=== PATIENT | male | born 1960 | race Caucasian/White ===

== ENCOUNTER 2017-11-25 00:07 | Day surgery (SDC) | payer MEDICARE, SELFPAY ==
[~2017-11-25 00:07] MED LIST: ACYC800 PO; CEPH500 PO; DEXA4 PO; DRON5 PO; FLUC200 PO; GABA300; IBUP800 PO; LEVFLO500 PO; MEDICAL MARIJUANA; OXYACE10 PO; OXYACE5T PO; PROC5 PO; PROM25 PO; Zofran8 MG PO
[2017-11-25 09:08] LABS: BASOPHILS PERCENT AUTO 4 % (0-2); EOSINOPHILS ABSOLUTE AUTO 0.27 K/mm3 (0.00-0.68); EOSINOPHILS PERCENT AUTO 11 % (0-6); Hematocrit 32.4 % (37.0-53.0); Hemoglobin 11.2 g/dL (13.5-17.5); IMMATURE GRAN ABSOLUTE AUTO 0.04 K/mm3 (0.00-0.10); IMMATURE GRAN PERCENT AUTO 2 % (0-1); LYMPHOCYTES ABSOLUTE AUTO 0.56 K/mm3 (0.84-5.20); LYMPHOCYTES PERCENT AUTO 23 % (21-46); MONOCYTES ABSOLUTE AUTO 0.25 K/mm3 (0.16-1.47); MONOCYTES PERCENT AUTO 10 % (4-13); Mean Corpuscular HGB 36.5 pg (26.0-34.0); Mean Corpuscular HGB Conc 34.6 g/dL (31.5-36.5); Mean Corpuscular Volume 106 fL (80-100); Mean Platelet Volume 10.6 fL (9.1-12.4); NEUTROPHILS ABSOLUTE AUTO 1.23 K/mm3 (1.96-9.15); NEUTROPHILS PERCENT AUTO 50 % (41-73); Platelet Count 141 K/mm3 (150-400); RDW Standard Deviation 49.9 fL (35.1-46.3); Red Blood Cell Count 3.07 M/mm3 (4.30-5.90); White Blood Cell Count 2.45 K/mm3 (4.00-11.30)
[2017-11-25 09:27] LABS: Alanine Aminotransfer (ALT/SGP 28 U/L (12-78); Albumin, Blood 3.5 g/dL (3.4-5.0); Albumin/Globulin Ratio 1.3 (0.8-1.8); Alk Phos 92 U/L (50-136); Anion Gap 7 mmol/L (6-16); Aspartate Aminotrans (AST/SGOT 13 U/L (12-37); Bilirubin, Total 0.7 mg/dL (0.1-1.0); Blood Urea Nitrogen 15 mg/dL (8-24); Bun/Creatinine Ratio 14.9 (12.0-20.0); CO2, Blood 26 mmol/L (21-32); Calcium, Blood 7.9 mg/dL (8.5-10.1); Chloride, Blood 109 mmol/L (98-108); Creatinine, Blood 1.01 mg/dL (0.60-1.20); Globulin, Blood 2.6 g/dL (2.2-4.0); Glomerular Filtration Rate >60 (60-); Glucose, Blood 89 mg/dL (70-99); Potassium, Blood 3.5 mmol/L (3.5-5.5); Sodium, Blood 142 mmol/L (136-145); Total Protein, Blood 6.1 g/dL (6.4-8.2)
== END 2017-11-25 22:37 ==
LOC: ATC 00:07
PROVIDERS: Internal Medicine Hematology & Oncology
DX: C82.18 Follicular lymphoma grade II, lymph nodes of multiple sites (principal)
CPT/HCPCS: 36591; 80053; 85025; J1642

== ENCOUNTER 2017-12-20 00:29 | Day surgery (SDC) | payer MEDICARE, SELFPAY | END 2017-12-20 11:03 | disposition home or self-care (01) | LOC: ATC 00:29 | DX: C82.18 Follicular lymphoma grade II, lymph nodes of multiple sites (principal); Z88.8 Allergy status to other drugs, medicaments and biological substances; Z79.899 Other long term (current) drug therapy | CPT/HCPCS: 96372; J1447 ==

== ENCOUNTER 2017-12-28 00:38 | Day surgery (SDC) | payer MEDICARE, SELFPAY ==
[2017-12-28 10:47] LABS: Hematocrit 29.1 % (37.0-53.0); Hemoglobin 9.8 g/dL (13.5-17.5); Mean Corpuscular HGB 35.8 pg (26.0-34.0); Mean Corpuscular HGB Conc 33.7 g/dL (31.5-36.5); Mean Corpuscular Volume 106 fL (80-100); Mean Platelet Volume 10.6 fL (9.1-12.4); Platelet Count 195 K/mm3 (150-400); RDW Coefficient Variation 15.6 % (11.7-14.2); RDW Standard Deviation 60.1 fL (35.1-46.3); Red Blood Cell Count 2.74 M/mm3 (4.30-5.90)
[2017-12-28 11:11] LABS: Alanine Aminotransfer (ALT/SGP 19 U/L (12-78); Albumin, Blood 3.4 g/dL (3.4-5.0); Albumin/Globulin Ratio 1.1 (0.8-1.8); Alk Phos 105 U/L (50-136); Anion Gap 5 mmol/L (6-16); Aspartate Aminotrans (AST/SGOT 12 U/L (12-37); Bilirubin, Total 0.7 mg/dL (0.1-1.0); Blood Urea Nitrogen 18 mg/dL (8-24); Bun/Creatinine Ratio 17.6 (12.0-20.0); CO2, Blood 26 mmol/L (21-32); Calcium, Blood 8.3 mg/dL (8.5-10.1); Chloride, Blood 108 mmol/L (98-108); Creatinine, Blood 1.02 mg/dL (0.60-1.20); Glomerular Filtration Rate >60 (60-); Glucose, Blood 89 mg/dL (70-99); Potassium, Blood 4.4 mmol/L (3.5-5.5); Sodium, Blood 139 mmol/L (136-145); Total Protein, Blood 6.4 g/dL (6.4-8.2)
[2017-12-28 11:30] LABS: BAND PERCENT MAN 1 % (0-8); BASOPHILS ABSOLUTE MAN 0.04 K/mm3 (0.00-0.23); BASOPHILS PERCENT MAN 2 % (0-2); EOSINOPHILS ABSOLUTE MAN 0.16 K/mm3 (0.00-0.68); EOSINOPHILS PERCENT MAN 7 % (0-6); LYMPHOCYTES % ATYPICAL MANUAL 3 % (0-0); LYMPHOCYTES ABSOLUTE MAN 1.15 K/mm3 (0.84-5.20); LYMPHOCYTES PERCENT MAN 45 % (21-46); MONOCYTES ABSOLUTE MAN 0.14 K/mm3 (0.16-1.47); MONOCYTES PERCENT MAN 6 % (4-13); NEUTROPHILS ABSOLUTE MAN 0.88 K/mm3 (1.96-9.15); SEG NEUTROPHILS PERCENT MAN 36 % (41-73); TOTAL CELLS COUNTED 100
== END 2017-12-28 10:28 | disposition home or self-care (01) ==
LOC: ATC 00:38
PROVIDERS: Internal Medicine Hematology & Oncology
DX: C82.18 Follicular lymphoma grade II, lymph nodes of multiple sites (principal)
CPT/HCPCS: 36591; 80053; 85025; J1642

== ENCOUNTER 2018-09-01 00:05 | Day surgery (SDC) | payer MEDICARE, SELFPAY ==
[~2018-09-01 00:05] MED LIST changes: +HEPARIN 50500 UNIT/5 IV; +NEUPOGEN SC
[2018-09-01] MEDS ORDERED: ZYDELIG150 MG PO (16:45)
[2018-09-01] MEDS ORDERED: LACT10SY PO (16:53)
[2018-09-01] MEDS ORDERED: PROC5 PO (16:54)
[2018-09-01] MEDS ORDERED: SULTRIL10 (16:55)
[2018-09-01 17:15] LABS: BASOPHILS ABSOLUTE AUTO 0.04 K/mm3 (0.00-0.23); BASOPHILS PERCENT AUTO 2 % (0-2); EOSINOPHILS ABSOLUTE AUTO 0.06 K/mm3 (0.00-0.68); EOSINOPHILS PERCENT AUTO 2 % (0-6); Hematocrit 31.7 % (37.0-53.0); Hemoglobin 10.2 g/dL (13.5-17.5); IMMATURE GRAN ABSOLUTE AUTO 0.11 K/mm3 (0.00-0.10); IMMATURE GRAN PERCENT AUTO 4 % (0-1); LYMPHOCYTES ABSOLUTE AUTO 1.24 K/mm3 (0.84-5.20); LYMPHOCYTES PERCENT AUTO 46 % (21-46); MONOCYTES ABSOLUTE AUTO 0.23 K/mm3 (0.16-1.47); MONOCYTES PERCENT AUTO 9 % (4-13); Mean Corpuscular HGB 34.3 pg (26.0-34.0); Mean Corpuscular HGB Conc 32.2 g/dL (31.5-36.5); Mean Corpuscular Volume 107 fL (80-100); Mean Platelet Volume 10.1 fL (9.1-12.4); NEUTROPHILS ABSOLUTE AUTO 1.01 K/mm3 (1.96-9.15); NEUTROPHILS PERCENT AUTO 38 % (41-73); Platelet Count 132 K/mm3 (150-400); RDW Coefficient Variation 15.4 % (11.7-14.2); RDW Standard Deviation 60.2 fL (35.1-46.3); Red Blood Cell Count 2.97 M/mm3 (4.30-5.90); White Blood Cell Count 2.69 K/mm3 (4.00-11.30)
[2018-09-01 17:33] LABS: Albumin, Blood 3.7 g/dL (3.4-5.0); Albumin/Globulin Ratio 1.2 (0.8-1.8); Bilirubin, Total 0.8 mg/dL (0.1-1.0); Bun/Creatinine Ratio 10.2 (12.0-20.0); Calcium, Blood 8.3 mg/dL (8.5-10.1); Creatinine, Blood 1.67 mg/dL (0.60-1.20); Potassium, Blood 3.7 mmol/L (3.5-5.5); Total Protein, Blood 6.7 g/dL (6.4-8.2)
== END 2018-09-01 16:30 | disposition home or self-care (01) ==
LOC: ATC 00:05
PROVIDERS: Internal Medicine Hematology & Oncology
DX: C82.18 Follicular lymphoma grade II, lymph nodes of multiple sites (principal); M54.9 Dorsalgia, unspecified; G89.29 Other chronic pain; Z88.8 Allergy status to other drugs, medicaments and biological substances; Z79.82 Long term (current) use of aspirin; Z79.899 Other long term (current) drug therapy
CPT/HCPCS: 36591; 80053; 85025

== ENCOUNTER 2018-09-29 00:14 | Day surgery (SDC) | payer MEDICARE ==
[~2018-09-29 00:14] MED LIST changes: +LACT10SY PO; +SULTRIL10; +ZYDELIG150 MG PO
[2018-09-29 16:52] LABS: BASOPHILS ABSOLUTE AUTO 0.02 K/mm3 (0.00-0.23); BASOPHILS PERCENT AUTO 1 % (0-2); EOSINOPHILS ABSOLUTE AUTO 0.06 K/mm3 (0.00-0.68); EOSINOPHILS PERCENT AUTO 2 % (0-6); Hematocrit 28.7 % (37.0-53.0); Hemoglobin 9.6 g/dL (13.5-17.5); IMMATURE GRAN ABSOLUTE AUTO 0.23 K/mm3 (0.00-0.10); IMMATURE GRAN PERCENT AUTO 6 % (0-1); LYMPHOCYTES ABSOLUTE AUTO 0.94 K/mm3 (0.84-5.20); LYMPHOCYTES PERCENT AUTO 25 % (21-46); MONOCYTES ABSOLUTE AUTO 0.31 K/mm3 (0.16-1.47); MONOCYTES PERCENT AUTO 8 % (4-13); Mean Corpuscular HGB 35.7 pg (26.0-34.0); Mean Corpuscular HGB Conc 33.4 g/dL (31.5-36.5); Mean Corpuscular Volume 107 fL (80-100); Mean Platelet Volume 9.7 fL (9.1-12.4); NEUTROPHILS PERCENT AUTO 59 % (41-73); Platelet Count 93 K/mm3 (150-400); RDW Coefficient Variation 15.3 % (11.7-14.2); RDW Standard Deviation 60.2 fL (35.1-46.3); Red Blood Cell Count 2.69 M/mm3 (4.30-5.90); White Blood Cell Count 3.76 K/mm3 (4.00-11.30)
[2018-09-29 17:18] LABS: Alanine Aminotransfer (ALT/SGP 27 U/L (12-78); Albumin, Blood 3.8 g/dL (3.4-5.0); Albumin/Globulin Ratio 1.4 (0.8-1.8); Alk Phos 119 U/L (50-136); Anion Gap 5 mmol/L (6-16); Aspartate Aminotrans (AST/SGOT 21 U/L (12-37); Bilirubin, Total 0.7 mg/dL (0.1-1.0); Blood Urea Nitrogen 12 mg/dL (8-24); CO2, Blood 23 mmol/L (21-32); Calcium, Blood 8.1 mg/dL (8.5-10.1); Chloride, Blood 110 mmol/L (98-108); Globulin, Blood 2.8 g/dL (2.2-4.0); Glomerular Filtration Rate >60 (60-); Glucose, Blood 106 mg/dL (70-99); Potassium, Blood 3.3 mmol/L (3.5-5.5); Sodium, Blood 138 mmol/L (136-145); Total Protein, Blood 6.6 g/dL (6.4-8.2)
== END 2018-09-29 16:42 | disposition home or self-care (01) ==
LOC: ATC 00:14
PROVIDERS: Internal Medicine Hematology & Oncology
DX: C82.18 Follicular lymphoma grade II, lymph nodes of multiple sites (principal); M54.9 Dorsalgia, unspecified; G89.29 Other chronic pain; Z88.8 Allergy status to other drugs, medicaments and biological substances; Z79.899 Other long term (current) drug therapy
CPT/HCPCS: 36591; 80053; 85025; J1642

== ENCOUNTER 2018-12-22 13:29 | Day surgery (SDC) | payer MEDICARE, OTHER ==
[~2018-12-22] VITALS: Wt 62.7 kg
[2018-12-22 16:25] LABS: BASOPHILS ABSOLUTE AUTO 0.01 K/mm3 (0.00-0.23); BASOPHILS PERCENT AUTO 0 % (0-2); EOSINOPHILS ABSOLUTE AUTO 0.03 K/mm3 (0.00-0.68); EOSINOPHILS PERCENT AUTO 1 % (0-6); Hemoglobin 6.2 g/dL (13.5-17.5); IMMATURE GRAN ABSOLUTE AUTO 0.16 K/mm3 (0.00-0.10); IMMATURE GRAN PERCENT AUTO 6 % (0-1); LYMPHOCYTES ABSOLUTE AUTO 0.42 K/mm3 (0.84-5.20); LYMPHOCYTES PERCENT AUTO 15 % (21-46); MONOCYTES ABSOLUTE AUTO 0.45 K/mm3 (0.16-1.47); MONOCYTES PERCENT AUTO 16 % (4-13); Mean Corpuscular HGB 35.4 pg (26.0-34.0); Mean Corpuscular HGB Conc 32.6 g/dL (31.5-36.5); Mean Corpuscular Volume 109 fL (80-100); Mean Platelet Volume 10.4 fL (9.1-12.4); NEUTROPHILS ABSOLUTE AUTO 1.75 K/mm3 (1.96-9.15); NEUTROPHILS PERCENT AUTO 62 % (41-73); Platelet Count 94 K/mm3 (150-400); RDW Coefficient Variation 16.3 % (11.7-14.2); RDW Standard Deviation 64.7 fL (35.1-46.3); Red Blood Cell Count 1.75 M/mm3 (4.30-5.90); White Blood Cell Count 2.82 K/mm3 (4.00-11.30)
[2018-12-22 16:42] LABS: Alanine Aminotransfer (ALT/SGP 21 U/L (12-78); Albumin, Blood 3.4 g/dL (3.4-5.0); Albumin/Globulin Ratio 0.9 (0.8-1.8); Alk Phos 123 U/L (50-136); Anion Gap 9 mmol/L (6-16); Aspartate Aminotrans (AST/SGOT 17 U/L (12-37); Bilirubin, Total 2.2 mg/dL (0.1-1.0); Blood Urea Nitrogen 14 mg/dL (8-24); Bun/Creatinine Ratio 10.8 (12.0-20.0); CO2, Blood 24 mmol/L (21-32); Calcium, Blood 8.6 mg/dL (8.5-10.1); Chloride, Blood 99 mmol/L (98-108); Globulin, Blood 3.6 g/dL (2.2-4.0); Glomerular Filtration Rate >60 (60-); Glucose, Blood 111 mg/dL (70-99); Potassium, Blood 3.5 mmol/L (3.5-5.5); Sodium, Blood 132 mmol/L (136-145)
[2018-12-22 16:45] LABS: BAND PERCENT MAN 3 % (0-8); BASOPHILS PERCENT MAN 0 % (0-2); EOSINOPHILS ABSOLUTE MAN 0.02 K/mm3 (0.00-0.68); EOSINOPHILS PERCENT MAN 1 % (0-6); LYMPHOCYTES ABSOLUTE MAN 0.47 K/mm3 (0.84-5.20); LYMPHOCYTES PERCENT MAN 17 % (21-46); MONOCYTES ABSOLUTE MAN 0.28 K/mm3 (0.16-1.47); MONOCYTES PERCENT MAN 10 % (4-13); NEUTROPHILS ABSOLUTE MAN 2.03 K/mm3 (1.96-9.15); SEG NEUTROPHILS PERCENT MAN 69 % (41-73); TOTAL CELLS COUNTED 100
== END 2018-12-22 15:51 | disposition home or self-care (01) ==
LOC: ATC 13:29
PROVIDERS: Internal Medicine
DX: C82.18 Follicular lymphoma grade II, lymph nodes of multiple sites (principal); Z79.899 Other long term (current) drug therapy; Z88.8 Allergy status to other drugs, medicaments and biological substances
CPT/HCPCS: 36591; 80053; 85025; J1642

== ENCOUNTER 2018-12-25 13:44 | Day surgery (SDC) | payer MEDICARE, OTHER ==
[2018-12-25] MEDS ORDERED: Bactrim Ds Tab1 EACH PO (14:38)
== END 2018-12-25 17:19 | disposition home or self-care (01) ==
LOC: ATC 13:44
DX: C82.90 Follicular lymphoma, unspecified, unspecified site (principal); Z88.8 Allergy status to other drugs, medicaments and biological substances; Z79.899 Other long term (current) drug therapy; F41.9 Anxiety disorder, unspecified; F32.9 Major depressive disorder, single episode, unspecified; G43.909 Migraine, unspecified, not intractable, without status migrainosus
CPT/HCPCS: 36415; 36430; 86850; 86900; 86901; 86923; J1642; J7050; P9040

== ENCOUNTER 2019-01-02 00:04 | Day surgery (SDC) | payer MEDICARE, OTHER ==
[~2019-01-02 00:04] MED LIST changes: +Bactrim Ds Tab1 EACH PO
[2019-01-02 12:10] LABS: Hematocrit 23.2 % (37.0-53.0); Hemoglobin 7.7 g/dL (13.5-17.5); Mean Corpuscular HGB Conc 33.2 g/dL (31.5-36.5); Mean Platelet Volume 11.1 fL (9.1-12.4); RDW Coefficient Variation 17.5 % (11.7-14.2); RDW Standard Deviation 64.3 fL (35.1-46.3); RETICULOCYTE ABSOLUTE 0.0312 M/mm3 (0.0200-0.1100); RETICULOCYTE COUNT PERCENT 1.34 % (0.50-2.50); Red Blood Cell Count 2.33 M/mm3 (4.30-5.90)
[2019-01-02 12:36] LABS: Albumin, Blood 2.7 g/dL (3.4-5.0); Albumin/Globulin Ratio 0.7 (0.8-1.8); Bilirubin, Direct 0.3 mg/dL (0.0-0.3); Bilirubin, Total 1.4 mg/dL (0.1-1.0); Bun/Creatinine Ratio 11.9 (12.0-20.0); Calcium, Blood 8.6 mg/dL (8.5-10.1); Creatinine, Blood 1.35 mg/dL (0.60-1.20); Globulin, Blood 3.7 g/dL (2.2-4.0); Potassium, Blood 3.7 mmol/L (3.5-5.5); Total Protein, Blood 6.4 g/dL (6.4-8.2)
[2019-01-02 12:51] LABS: BASOPHILS ABSOLUTE AUTO 0.01 K/mm3 (0.00-0.23); BASOPHILS PERCENT AUTO 1 % (0-2); EOSINOPHILS ABSOLUTE AUTO 0.03 K/mm3 (0.00-0.68); EOSINOPHILS PERCENT AUTO 3 % (0-6); IMMATURE GRAN ABSOLUTE AUTO 0.05 K/mm3 (0.00-0.10); IMMATURE GRAN PERCENT AUTO 5 % (0-1); LYMPHOCYTES ABSOLUTE AUTO 0.45 K/mm3 (0.84-5.20); LYMPHOCYTES PERCENT AUTO 45 % (21-46); MONOCYTES ABSOLUTE AUTO 0.33 K/mm3 (0.16-1.47); MONOCYTES PERCENT AUTO 33 % (4-13); NEUTROPHILS ABSOLUTE AUTO 0.13 K/mm3 (1.96-9.15); NEUTROPHILS PERCENT AUTO 13 % (41-73)
[2019-01-02 12:52] LABS: Mean Corpuscular Volume 100 fL (80-100); Platelet Count 74 K/mm3 (150-400)
== END 2019-01-02 11:50 | disposition home or self-care (01) ==
LOC: ATC 00:04
PROVIDERS: Internal Medicine
DX: C82.18 Follicular lymphoma grade II, lymph nodes of multiple sites (principal); Z88.8 Allergy status to other drugs, medicaments and biological substances; Z79.899 Other long term (current) drug therapy
CPT/HCPCS: 36591; 80053; 82248; 83010; 83615; 84550; 85025; 85045; 86880; J1642

== ENCOUNTER 2019-01-09 11:39 | Day surgery (SDC) | payer MEDICARE, OTHER ==
[2019-01-09 15:53] LABS: Hematocrit 23.7 % (37.0-53.0); Hemoglobin 7.7 g/dL (13.5-17.5); Mean Corpuscular HGB 31.4 pg (26.0-34.0); Mean Corpuscular HGB Conc 32.5 g/dL (31.5-36.5); Mean Platelet Volume 10.6 fL (9.1-12.4); Platelet Count 51 K/mm3 (150-400); RDW Coefficient Variation 16.7 % (11.7-14.2); RDW Standard Deviation 58.9 fL (35.1-46.3); Red Blood Cell Count 2.45 M/mm3 (4.30-5.90); White Blood Cell Count 2.59 K/mm3 (4.00-11.30)
[2019-01-09 16:07] LABS: Mean Corpuscular Volume 97 fL (80-100)
[2019-01-09 16:16] LABS: Alanine Aminotransfer (ALT/SGP 64 U/L (12-78); Albumin, Blood 2.3 g/dL (3.4-5.0); Albumin/Globulin Ratio 0.7 (0.8-1.8); Alk Phos 142 U/L (50-136); Anion Gap 6 mmol/L (6-16); Aspartate Aminotrans (AST/SGOT 113 U/L (12-37); Blood Urea Nitrogen 15 mg/dL (8-24); Bun/Creatinine Ratio 12.3 (12.0-20.0); CO2, Blood 35 mmol/L (21-32); Calcium, Blood 9.3 mg/dL (8.5-10.1); Chloride, Blood 92 mmol/L (98-108); Creatinine, Blood 1.22 mg/dL (0.60-1.20); Globulin, Blood 3.4 g/dL (2.2-4.0); Glomerular Filtration Rate >60 (60-); Glucose, Blood 92 mg/dL (70-99); Potassium, Blood 3.2 mmol/L (3.5-5.5); Sodium, Blood 133 mmol/L (136-145); Total Protein, Blood 5.7 g/dL (6.4-8.2)
[2019-01-09 16:22] LABS: BAND PERCENT MAN 2 % (0-8); BASOPHILS PERCENT MAN 0 % (0-2); EOSINOPHILS ABSOLUTE MAN 0.02 K/mm3 (0.00-0.68); EOSINOPHILS PERCENT MAN 1 % (0-6); LYMPHOCYTES ABSOLUTE MAN 0.33 K/mm3 (0.84-5.20); LYMPHOCYTES PERCENT MAN 13 % (21-46); MONOCYTES PERCENT MAN 8 % (4-13); NEUTROPHILS ABSOLUTE MAN 2.02 K/mm3 (1.96-9.15); SEG NEUTROPHILS PERCENT MAN 76 % (41-73); TOTAL CELLS COUNTED 100
== END 2019-01-09 15:10 | disposition home or self-care (01) ==
LOC: ATC 11:39
PROVIDERS: Internal Medicine
DX: C82.15 Follicular lymphoma grade II, lymph nodes of inguinal region and lower limb (principal); F41.9 Anxiety disorder, unspecified; F32.9 Major depressive disorder, single episode, unspecified; G43.909 Migraine, unspecified, not intractable, without status migrainosus; Z88.8 Allergy status to other drugs, medicaments and biological substances; Z79.899 Other long term (current) drug therapy
CPT/HCPCS: 36591; 80053; 85025; J1642

== ENCOUNTER 2019-01-17 00:15 | Day surgery (SDC) | payer MEDICARE, OTHER ==
[2019-01-16 11:02] LABS: Mean Corpuscular HGB 32.4 pg (26.0-34.0); Mean Corpuscular HGB Conc 33.3 g/dL (31.5-36.5); Mean Corpuscular Volume 97 fL (80-100); Mean Platelet Volume 10.5 fL (9.1-12.4); RDW Standard Deviation 56.8 fL (35.1-46.3); Red Blood Cell Count 1.76 M/mm3 (4.30-5.90)
[2019-01-16 11:11] LABS: BASOPHILS PERCENT AUTO 0 % (0-2); EOSINOPHILS ABSOLUTE AUTO 0.01 K/mm3 (0.00-0.68); IMMATURE GRAN ABSOLUTE AUTO 0.08 K/mm3 (0.00-0.10); LYMPHOCYTES ABSOLUTE AUTO 0.08 K/mm3 (0.84-5.20); MONOCYTES ABSOLUTE AUTO 0.05 K/mm3 (0.16-1.47); NEUTROPHILS ABSOLUTE AUTO 0.14 K/mm3 (1.96-9.15)
[2019-01-16 11:13] LABS: White Blood Cell Count 0.36 K/mm3 (4.00-11.30)
[2019-01-16 11:14] LABS: Hematocrit 17.1 % (37.0-53.0); Hemoglobin 5.7 g/dL (13.5-17.5); Platelet Count 16 K/mm3 (150-400)
[2019-01-16 11:30] LABS: Alanine Aminotransfer (ALT/SGP 110 U/L (12-78); Albumin, Blood 2.4 g/dL (3.4-5.0); Albumin/Globulin Ratio 0.7 (0.8-1.8); Alk Phos 117 U/L (50-136); Anion Gap 11 mmol/L (6-16); Aspartate Aminotrans (AST/SGOT 67 U/L (12-37); Blood Urea Nitrogen 16 mg/dL (8-24); Bun/Creatinine Ratio 16.2 (12.0-20.0); CO2, Blood 22 mmol/L (21-32); Calcium, Blood 8.4 mg/dL (8.5-10.1); Chloride, Blood 104 mmol/L (98-108); Creatinine, Blood 0.99 mg/dL (0.60-1.20); Globulin, Blood 3.5 g/dL (2.2-4.0); Glomerular Filtration Rate >60 (60-); Glucose, Blood 84 mg/dL (70-99); Potassium, Blood 3.3 mmol/L (3.5-5.5); Sodium, Blood 137 mmol/L (136-145); Total Protein, Blood 5.9 g/dL (6.4-8.2)
[2019-01-16 12:06] LABS: EOSINOPHILS PERCENT AUTO 3 % (0-6); IMMATURE GRAN PERCENT AUTO 3 % (0-1); LYMPHOCYTES PERCENT AUTO 27 % (21-46); MONOCYTES PERCENT AUTO 16 % (4-13); NEUTROPHILS PERCENT AUTO 51 % (41-73)
== END 2019-01-17 17:30 | disposition home or self-care (01) ==
LOC: ATC 00:15
PROVIDERS: Internal Medicine
DX: C82.15 Follicular lymphoma grade II, lymph nodes of inguinal region and lower limb (principal); F41.9 Anxiety disorder, unspecified; F32.9 Major depressive disorder, single episode, unspecified; G43.909 Migraine, unspecified, not intractable, without status migrainosus; Z88.8 Allergy status to other drugs, medicaments and biological substances; Z79.899 Other long term (current) drug therapy
CPT/HCPCS: 36430; 36591; 80053; 85025; 86850; 86900; 86901; 86923; J1642; J7050; P9040

== ENCOUNTER 2019-01-19 00:21 | Day surgery (SDC) | payer MEDICARE, OTHER ==
[2019-01-19 08:51] LABS: Hematocrit 20.2 % (37.0-53.0); Hemoglobin 6.8 g/dL (13.5-17.5); Mean Corpuscular HGB 29.4 pg (26.0-34.0); Mean Corpuscular HGB Conc 33.7 g/dL (31.5-36.5); Mean Platelet Volume 9.7 fL (9.1-12.4); RDW Standard Deviation 57.6 fL (35.1-46.3); Red Blood Cell Count 2.31 M/mm3 (4.30-5.90); White Blood Cell Count 1.11 K/mm3 (4.00-11.30)
[2019-01-19 08:55] LABS: IMMATURE GRAN ABSOLUTE AUTO 0.13 K/mm3 (0.00-0.10); IMMATURE GRAN PERCENT AUTO 12 % (0-1); Mean Corpuscular Volume 87 fL (80-100)
[2019-01-19 09:08] LABS: Platelet Count 4 K/mm3 (150-400)
[2019-01-19 09:11] LABS: Alanine Aminotransfer (ALT/SGP 64 U/L (12-78); Albumin, Blood 2.4 g/dL (3.4-5.0); Albumin/Globulin Ratio 0.7 (0.8-1.8); Alk Phos 122 U/L (50-136); Anion Gap 13 mmol/L (6-16); Aspartate Aminotrans (AST/SGOT 47 U/L (12-37); Bilirubin, Total 0.8 mg/dL (0.1-1.0); Blood Urea Nitrogen 17 mg/dL (8-24); Bun/Creatinine Ratio 16.2 (12.0-20.0); CO2, Blood 20 mmol/L (21-32); Calcium, Blood 8.4 mg/dL (8.5-10.1); Chloride, Blood 101 mmol/L (98-108); Creatinine, Blood 1.05 mg/dL (0.60-1.20); Globulin, Blood 3.6 g/dL (2.2-4.0); Glomerular Filtration Rate >60 (60-); Glucose, Blood 108 mg/dL (70-99); Potassium, Blood 3.1 mmol/L (3.5-5.5); Sodium, Blood 134 mmol/L (136-145)
[2019-01-19 09:15] LABS: BAND PERCENT MAN 3 % (0-8); BASOPHILS PERCENT MAN 0 % (0-2); EOSINOPHILS ABSOLUTE MAN 0.03 K/mm3 (0.00-0.68); EOSINOPHILS PERCENT MAN 3 % (0-6); LYMPHOCYTES ABSOLUTE MAN 0.43 K/mm3 (0.84-5.20); LYMPHOCYTES PERCENT MAN 39 % (21-46); METAMYELOCYTE ABSOLUTE MAN 0.01 K/mm3 (0.00-0.00); METAMYELOCYTE PERCENT MAN 1 % (0-0); MONOCYTES ABSOLUTE MAN 0.04 K/mm3 (0.16-1.47); MONOCYTES PERCENT MAN 4 % (4-13); NEUTROPHILS ABSOLUTE MAN 0.58 K/mm3 (1.96-9.15); SEG NEUTROPHILS PERCENT MAN 50 % (41-73); TOTAL CELLS COUNTED 100
== END 2019-01-19 08:15 | disposition home or self-care (01) ==
LOC: ATC 00:21 → LAB 00:21 → ATC 08:00
PROVIDERS: Internal Medicine
DX: C82.15 Follicular lymphoma grade II, lymph nodes of inguinal region and lower limb (principal); F41.9 Anxiety disorder, unspecified; F32.9 Major depressive disorder, single episode, unspecified; G43.909 Migraine, unspecified, not intractable, without status migrainosus; Z79.899 Other long term (current) drug therapy; Z88.8 Allergy status to other drugs, medicaments and biological substances
CPT/HCPCS: 36430; 36591; 80053; 85025; 86850; 86900; 86901; 86923; J1642; J7050; P9037; P9040

== ENCOUNTER 2019-01-24 00:07 | Day surgery (SDC) | payer MEDICARE, OTHER ==
[2019-01-23 08:36] LABS: BASOPHILS ABSOLUTE AUTO 0.01 K/mm3 (0.00-0.23); BASOPHILS PERCENT AUTO 0 % (0-2); Hematocrit 23.2 % (37.0-53.0); Hemoglobin 7.6 g/dL (13.5-17.5); Mean Corpuscular HGB 29.9 pg (26.0-34.0); Mean Corpuscular HGB Conc 32.8 g/dL (31.5-36.5); Mean Platelet Volume 10.6 fL (9.1-12.4); RDW Coefficient Variation 17.2 % (11.7-14.2); RDW Standard Deviation 57.2 fL (35.1-46.3); Red Blood Cell Count 2.54 M/mm3 (4.30-5.90); White Blood Cell Count 2.38 K/mm3 (4.00-11.30)
[2019-01-23 08:38] LABS: Mean Corpuscular Volume 91 fL (80-100)
[2019-01-23 08:39] LABS: EOSINOPHILS ABSOLUTE AUTO 0.03 K/mm3 (0.00-0.68); EOSINOPHILS PERCENT AUTO 1 % (0-6); IMMATURE GRAN ABSOLUTE AUTO 0.26 K/mm3 (0.00-0.10); IMMATURE GRAN PERCENT AUTO 11 % (0-1); LYMPHOCYTES ABSOLUTE AUTO 1.03 K/mm3 (0.84-5.20); LYMPHOCYTES PERCENT AUTO 43 % (21-46); MONOCYTES ABSOLUTE AUTO 0.33 K/mm3 (0.16-1.47); MONOCYTES PERCENT AUTO 14 % (4-13); NEUTROPHILS ABSOLUTE AUTO 0.72 K/mm3 (1.96-9.15); NEUTROPHILS PERCENT AUTO 30 % (41-73)
[2019-01-23 08:50] LABS: Platelet Count 11 K/mm3 (150-400)
[2019-01-23 09:02] LABS: Alanine Aminotransfer (ALT/SGP 42 U/L (12-78); Albumin, Blood 2.5 g/dL (3.4-5.0); Albumin/Globulin Ratio 0.7 (0.8-1.8); Alk Phos 131 U/L (50-136); Anion Gap 10 mmol/L (6-16); Aspartate Aminotrans (AST/SGOT 32 U/L (12-37); Bilirubin, Total 0.6 mg/dL (0.1-1.0); Blood Urea Nitrogen 20 mg/dL (8-24); Bun/Creatinine Ratio 16.5 (12.0-20.0); CO2, Blood 24 mmol/L (21-32); Calcium, Blood 9.1 mg/dL (8.5-10.1); Chloride, Blood 102 mmol/L (98-108); Creatinine, Blood 1.21 mg/dL (0.60-1.20); Globulin, Blood 3.7 g/dL (2.2-4.0); Glomerular Filtration Rate >60 (60-); Glucose, Blood 87 mg/dL (70-99); Potassium, Blood 3.6 mmol/L (3.5-5.5); Sodium, Blood 136 mmol/L (136-145); Total Protein, Blood 6.2 g/dL (6.4-8.2)
== END 2019-01-24 09:50 | disposition home or self-care (01) ==
LOC: ATC 00:07
PROVIDERS: Internal Medicine
DX: C82.18 Follicular lymphoma grade II, lymph nodes of multiple sites (principal)
CPT/HCPCS: 36430; 36591; 80053; 85025; 86900; 86901; J1642; J7050; P9035; P9037

== ENCOUNTER 2019-01-27 09:57 | Day surgery (SDC) | payer MEDICARE, OTHER ==
[2019-01-27 12:11] LABS: BASOPHILS ABSOLUTE AUTO 0.01 K/mm3 (0.00-0.23); BASOPHILS PERCENT AUTO 0 % (0-2); Hematocrit 24.9 % (37.0-53.0); Hemoglobin 8.2 g/dL (13.5-17.5); LYMPHOCYTES ABSOLUTE AUTO 0.67 K/mm3 (0.84-5.20); LYMPHOCYTES PERCENT AUTO 22 % (21-46); MONOCYTES ABSOLUTE AUTO 0.48 K/mm3 (0.16-1.47); MONOCYTES PERCENT AUTO 16 % (4-13); Mean Corpuscular HGB Conc 32.9 g/dL (31.5-36.5); Mean Corpuscular Volume 91 fL (80-100); Mean Platelet Volume 11.2 fL (9.1-12.4); RDW Coefficient Variation 16.1 % (11.7-14.2); RDW Standard Deviation 51.8 fL (35.1-46.3); Red Blood Cell Count 2.73 M/mm3 (4.30-5.90); White Blood Cell Count 3.04 K/mm3 (4.00-11.30)
[2019-01-27 12:18] LABS: EOSINOPHILS ABSOLUTE AUTO 0.02 K/mm3 (0.00-0.68); EOSINOPHILS PERCENT AUTO 1 % (0-6); IMMATURE GRAN ABSOLUTE AUTO 0.26 K/mm3 (0.00-0.10); IMMATURE GRAN PERCENT AUTO 9 % (0-1); NEUTROPHILS PERCENT AUTO 53 % (41-73); Platelet Count 21 K/mm3 (150-400)
[2019-01-27 12:24] LABS: Alanine Aminotransfer (ALT/SGP 49 U/L (12-78); Albumin, Blood 2.7 g/dL (3.4-5.0); Albumin/Globulin Ratio 0.7 (0.8-1.8); Alk Phos 150 U/L (50-136); Anion Gap 11 mmol/L (6-16); Aspartate Aminotrans (AST/SGOT 50 U/L (12-37); Bilirubin, Total 1.1 mg/dL (0.1-1.0); Blood Urea Nitrogen 24 mg/dL (8-24); Bun/Creatinine Ratio 18.8 (12.0-20.0); CO2, Blood 25 mmol/L (21-32); Calcium, Blood 8.8 mg/dL (8.5-10.1); Chloride, Blood 100 mmol/L (98-108); Creatinine, Blood 1.28 mg/dL (0.60-1.20); Globulin, Blood 3.8 g/dL (2.2-4.0); Glomerular Filtration Rate >60 (60-); Glucose, Blood 90 mg/dL (70-99); Potassium, Blood 3.7 mmol/L (3.5-5.5); Sodium, Blood 136 mmol/L (136-145); Total Protein, Blood 6.5 g/dL (6.4-8.2)
[2019-01-27 16:46] LABS: Mean Platelet Volume 11.3 fL (9.1-12.4)
[2019-01-27 16:51] LABS: Platelet Count 33 K/mm3 (150-400)
[2019-01-28 16:01] LABS: Mean Platelet Volume 10.8 fL (9.1-12.4)
[2019-01-28 16:14] LABS: Platelet Count 34 K/mm3 (150-400)
[2019-01-29 09:44] LABS: Mean Platelet Volume 10.6 fL (9.1-12.4)
[2019-01-29 09:51] LABS: Platelet Count 46 K/mm3 (150-400)
== END 2019-01-30 23:10 | disposition home or self-care (01) ==
LOC: ATC 09:57
PROVIDERS: Internal Medicine
DX: C82.08 Follicular lymphoma grade I, lymph nodes of multiple sites (principal); C82.18 Follicular lymphoma grade II, lymph nodes of multiple sites; I82.4Z2 Acute embolism and thrombosis of unspecified deep veins of left distal lower extremity; F41.9 Anxiety disorder, unspecified; F32.9 Major depressive disorder, single episode, unspecified; Z88.8 Allergy status to other drugs, medicaments and biological substances; Z79.899 Other long term (current) drug therapy
CPT/HCPCS: 36430; 36591; 80053; 85025; 85049; 86900; 86901; J1642; J7050; P9037

== ENCOUNTER 2019-02-01 00:10 | Day surgery (SDC) | payer MEDICARE, OTHER ==
[2019-01-30 09:05] LABS: Hematocrit 22.2 % (37.0-53.0); Hemoglobin 7.2 g/dL (13.5-17.5); Mean Corpuscular HGB 29.4 pg (26.0-34.0); Mean Corpuscular HGB Conc 32.4 g/dL (31.5-36.5); Mean Corpuscular Volume 91 fL (80-100); Mean Platelet Volume 11.6 fL (9.1-12.4); RDW Coefficient Variation 15.5 % (11.7-14.2); RDW Standard Deviation 50.7 fL (35.1-46.3); Red Blood Cell Count 2.45 M/mm3 (4.30-5.90)
[2019-01-30 09:20] LABS: Alanine Aminotransfer (ALT/SGP 46 U/L (12-78); Albumin, Blood 2.7 g/dL (3.4-5.0); Albumin/Globulin Ratio 0.8 (0.8-1.8); Alk Phos 149 U/L (50-136); Anion Gap 8 mmol/L (6-16); Aspartate Aminotrans (AST/SGOT 50 U/L (12-37); Bilirubin, Total 0.8 mg/dL (0.1-1.0); Blood Urea Nitrogen 20 mg/dL (8-24); Bun/Creatinine Ratio 15.5 (12.0-20.0); CO2, Blood 26 mmol/L (21-32); Calcium, Blood 8.9 mg/dL (8.5-10.1); Chloride, Blood 99 mmol/L (98-108); Creatinine, Blood 1.29 mg/dL (0.60-1.20); Globulin, Blood 3.5 g/dL (2.2-4.0); Glomerular Filtration Rate >60 (60-); Glucose, Blood 105 mg/dL (70-99); Potassium, Blood 3.4 mmol/L (3.5-5.5); Sodium, Blood 133 mmol/L (136-145); Total Protein, Blood 6.2 g/dL (6.4-8.2)
[2019-01-30 09:22] LABS: Platelet Count 32 K/mm3 (150-400)
[2019-01-30 09:29] LABS: BASOPHILS PERCENT MAN 0 % (0-2); EOSINOPHILS ABSOLUTE MAN 0.02 K/mm3 (0.00-0.68); EOSINOPHILS PERCENT MAN 1 % (0-6); LYMPHOCYTES ABSOLUTE MAN 0.48 K/mm3 (0.84-5.20); LYMPHOCYTES PERCENT MAN 24 % (21-46); MONOCYTES ABSOLUTE MAN 0.36 K/mm3 (0.16-1.47); MONOCYTES PERCENT MAN 18 % (4-13); NEUTROPHILS ABSOLUTE MAN 1.14 K/mm3 (1.96-9.15); SEG NEUTROPHILS PERCENT MAN 57 % (41-73); TOTAL CELLS COUNTED 100
[2019-01-30 10:21] LABS: Mean Platelet Volume 10.3 fL (9.1-12.4)
[2019-01-30 11:07] LABS: Platelet Count 43 K/mm3 (150-400)
[2019-02-02] MEDS ORDERED: Ultram50 MG PO (08:15)
[2019-02-02] MEDS ORDERED: ONDA8 PO (08:16)
[2019-02-02] MEDS ORDERED: LACT10SY (08:16)
== END 2019-02-01 09:30 | disposition home or self-care (01) ==
LOC: ATC 00:10
PROVIDERS: Internal Medicine
DX: C82.18 Follicular lymphoma grade II, lymph nodes of multiple sites (principal); Z88.8 Allergy status to other drugs, medicaments and biological substances; Z79.899 Other long term (current) drug therapy; Z79.82 Long term (current) use of aspirin
CPT/HCPCS: 36430; 80053; 85025; 85049; 86900; 86901; J1642; J7050; P9037

== ENCOUNTER 2019-02-02 00:07 | Day surgery (SDC) | payer MEDICARE, OTHER ==
[2019-02-02] MEDS ORDERED: Ultram50 MG PO (08:15)
[2019-02-02] MEDS ORDERED: LACT10SY (08:16)
[2019-02-02] MEDS ORDERED: ONDA8 PO (08:16)
[2019-02-02 08:30] LABS: BASOPHILS ABSOLUTE AUTO 0.01 K/mm3 (0.00-0.23); BASOPHILS PERCENT AUTO 1 % (0-2); EOSINOPHILS ABSOLUTE AUTO 0.01 K/mm3 (0.00-0.68); EOSINOPHILS PERCENT AUTO 1 % (0-6); Hematocrit 19.5 % (37.0-53.0); Hemoglobin 6.2 g/dL (13.5-17.5); Mean Corpuscular HGB 29.4 pg (26.0-34.0); Mean Corpuscular HGB Conc 31.8 g/dL (31.5-36.5); Mean Corpuscular Volume 92 fL (80-100); Mean Platelet Volume 11.5 fL (9.1-12.4); Red Blood Cell Count 2.11 M/mm3 (4.30-5.90); White Blood Cell Count 1.78 K/mm3 (4.00-11.30)
[2019-02-02 08:39] LABS: IMMATURE GRAN ABSOLUTE AUTO 0.08 K/mm3 (0.00-0.10); IMMATURE GRAN PERCENT AUTO 5 % (0-1); LYMPHOCYTES ABSOLUTE AUTO 0.45 K/mm3 (0.84-5.20); LYMPHOCYTES PERCENT AUTO 25 % (21-46); MONOCYTES ABSOLUTE AUTO 0.38 K/mm3 (0.16-1.47); MONOCYTES PERCENT AUTO 21 % (4-13); NEUTROPHILS ABSOLUTE AUTO 0.85 K/mm3 (1.96-9.15); NEUTROPHILS PERCENT AUTO 48 % (41-73); Platelet Count 33 K/mm3 (150-400)
[2019-02-02 08:54] LABS: Albumin, Blood 2.8 g/dL (3.4-5.0); Albumin/Globulin Ratio 0.8 (0.8-1.8); Bilirubin, Total 1.1 mg/dL (0.1-1.0); Bun/Creatinine Ratio 17.4 (12.0-20.0); Calcium, Blood 9.7 mg/dL (8.5-10.1); Creatinine, Blood 1.44 mg/dL (0.60-1.20); Globulin, Blood 3.4 g/dL (2.2-4.0); Potassium, Blood 4.3 mmol/L (3.5-5.5); Total Protein, Blood 6.2 g/dL (6.4-8.2)
== END 2019-02-02 12:55 | disposition home or self-care (01) ==
LOC: ATC 00:07
PROVIDERS: Internal Medicine
DX: C82.18 Follicular lymphoma grade II, lymph nodes of multiple sites (principal); F41.9 Anxiety disorder, unspecified; F32.9 Major depressive disorder, single episode, unspecified; Z88.8 Allergy status to other drugs, medicaments and biological substances; Z79.899 Other long term (current) drug therapy
CPT/HCPCS: 36430; 80053; 85025; 86850; 86900; 86901; 86923; J1642; P9037; P9040

== ENCOUNTER 2019-02-06 00:23 | Day surgery (SDC) | payer MEDICARE, OTHER ==
[~2019-02-06 00:23] MED LIST changes: +LACT10SY; +ONDA8 PO; +Ultram50 MG PO
[2019-02-06 08:21] LABS: Hematocrit 22.4 % (37.0-53.0); Hemoglobin 7.2 g/dL (13.5-17.5); Mean Corpuscular HGB 30.8 pg (26.0-34.0); Mean Corpuscular HGB Conc 32.1 g/dL (31.5-36.5); Mean Platelet Volume 10.6 fL (9.1-12.4); RDW Coefficient Variation 15.9 % (11.7-14.2); RDW Standard Deviation 52.6 fL (35.1-46.3); Red Blood Cell Count 2.34 M/mm3 (4.30-5.90); White Blood Cell Count 1.79 K/mm3 (4.00-11.30)
[2019-02-06 08:36] LABS: Albumin, Blood 2.9 g/dL (3.4-5.0); Albumin/Globulin Ratio 0.8 (0.8-1.8); Bilirubin, Total 1.1 mg/dL (0.1-1.0); Calcium, Blood 10.2 mg/dL (8.5-10.1); Creatinine, Blood 1.47 mg/dL (0.60-1.20); Globulin, Blood 3.5 g/dL (2.2-4.0); Potassium, Blood 3.5 mmol/L (3.5-5.5); Total Protein, Blood 6.4 g/dL (6.4-8.2)
[2019-02-06 08:38] LABS: Mean Corpuscular Volume 96 fL (80-100); Platelet Count 19 K/mm3 (150-400)
[2019-02-06 08:46] LABS: BASOPHILS ABSOLUTE MAN 0.01 K/mm3 (0.00-0.23); BASOPHILS PERCENT MAN 1 % (0-2); EOSINOPHILS PERCENT MAN 0 % (0-6); LYMPHOCYTES ABSOLUTE MAN 0.57 K/mm3 (0.84-5.20); LYMPHOCYTES PERCENT MAN 32 % (21-46); MONOCYTES ABSOLUTE MAN 0.25 K/mm3 (0.16-1.47); MONOCYTES PERCENT MAN 14 % (4-13); NEUTROPHILS ABSOLUTE MAN 0.94 K/mm3 (1.96-9.15); SEG NEUTROPHILS PERCENT MAN 53 % (41-73); TOTAL CELLS COUNTED 100
== END 2019-02-06 11:55 | disposition home or self-care (01) ==
LOC: ATC 00:23
PROVIDERS: Internal Medicine
DX: C82.08 Follicular lymphoma grade I, lymph nodes of multiple sites (principal); M54.9 Dorsalgia, unspecified; G89.29 Other chronic pain; Z88.8 Allergy status to other drugs, medicaments and biological substances
CPT/HCPCS: 36430; 80053; 85025; 86900; 86901; J1642; J7050; P9037

== ENCOUNTER 2019-04-10 00:06 | Day surgery (SDC) | payer MEDICARE, OTHER ==
[2019-04-10] MEDS ORDERED: ELIQUIS5 MG PO (11:29)
[2019-04-10 11:44] LABS: BASOPHILS ABSOLUTE AUTO 0.01 K/mm3 (0.00-0.23); BASOPHILS PERCENT AUTO 0 % (0-2); EOSINOPHILS ABSOLUTE AUTO 0.11 K/mm3 (0.00-0.68); EOSINOPHILS PERCENT AUTO 4 % (0-6); Hematocrit 22.9 % (37.0-53.0); Hemoglobin 7.7 g/dL (13.5-17.5); IMMATURE GRAN ABSOLUTE AUTO 0.04 K/mm3 (0.00-0.10); IMMATURE GRAN PERCENT AUTO 1 % (0-1); LYMPHOCYTES PERCENT AUTO 36 % (21-46); MONOCYTES ABSOLUTE AUTO 0.28 K/mm3 (0.16-1.47); MONOCYTES PERCENT AUTO 10 % (4-13); Mean Corpuscular HGB 34.5 pg (26.0-34.0); Mean Corpuscular HGB Conc 33.6 g/dL (31.5-36.5); Mean Corpuscular Volume 103 fL (80-100); Mean Platelet Volume 10.5 fL (9.1-12.4); NEUTROPHILS ABSOLUTE AUTO 1.34 K/mm3 (1.96-9.15); NEUTROPHILS PERCENT AUTO 48 % (41-73); Platelet Count 57 K/mm3 (150-400); RDW Coefficient Variation 22.7 % (11.7-14.2); RDW Standard Deviation 80.5 fL (35.1-46.3); Red Blood Cell Count 2.23 M/mm3 (4.30-5.90); White Blood Cell Count 2.78 K/mm3 (4.00-11.30)
== END 2019-04-10 11:55 | disposition home or self-care (01) ==
LOC: ATC 00:06
PROVIDERS: Internal Medicine Hematology & Oncology
DX: C82.25 Follicular lymphoma grade III, unspecified, lymph nodes of inguinal region and lower limb (principal); D69.59 Other secondary thrombocytopenia; D64.9 Anemia, unspecified; G43.909 Migraine, unspecified, not intractable, without status migrainosus; F32.9 Major depressive disorder, single episode, unspecified; G89.29 Other chronic pain; M54.5 Low back pain; G47.00 Insomnia, unspecified; Z79.899 Other long term (current) drug therapy
CPT/HCPCS: 85025; J1642

== ENCOUNTER 2019-04-17 00:07 | Day surgery (SDC) | payer MEDICARE, OTHER ==
[~2019-04-17 00:07] MED LIST changes: +ELIQUIS5 MG PO
[2019-04-17 11:31] LABS: BASOPHILS ABSOLUTE AUTO 0.02 K/mm3 (0.00-0.23); BASOPHILS PERCENT AUTO 1 % (0-2); EOSINOPHILS ABSOLUTE AUTO 0.13 K/mm3 (0.00-0.68); EOSINOPHILS PERCENT AUTO 4 % (0-6); Hematocrit 21.2 % (37.0-53.0); Hemoglobin 7.1 g/dL (13.5-17.5); IMMATURE GRAN ABSOLUTE AUTO 0.04 K/mm3 (0.00-0.10); IMMATURE GRAN PERCENT AUTO 1 % (0-1); LYMPHOCYTES ABSOLUTE AUTO 1.01 K/mm3 (0.84-5.20); LYMPHOCYTES PERCENT AUTO 29 % (21-46); MONOCYTES ABSOLUTE AUTO 0.39 K/mm3 (0.16-1.47); MONOCYTES PERCENT AUTO 11 % (4-13); Mean Corpuscular HGB 35.1 pg (26.0-34.0); Mean Corpuscular HGB Conc 33.5 g/dL (31.5-36.5); Mean Corpuscular Volume 105 fL (80-100); Mean Platelet Volume 10.6 fL (9.1-12.4); NEUTROPHILS ABSOLUTE AUTO 1.92 K/mm3 (1.96-9.15); NEUTROPHILS PERCENT AUTO 55 % (41-73); Platelet Count 57 K/mm3 (150-400); RDW Coefficient Variation 22.5 % (11.7-14.2); RDW Standard Deviation 82.6 fL (35.1-46.3); Red Blood Cell Count 2.02 M/mm3 (4.30-5.90); White Blood Cell Count 3.51 K/mm3 (4.00-11.30)
[2019-04-17 11:46] LABS: Alanine Aminotransfer (ALT/SGP 17 U/L (12-78); Albumin, Blood 3.9 g/dL (3.4-5.0); Albumin/Globulin Ratio 1.7 (0.8-1.8); Alk Phos 127 U/L (50-136); Anion Gap 4 mmol/L (6-16); Aspartate Aminotrans (AST/SGOT 15 U/L (12-37); Bilirubin, Total 1.4 mg/dL (0.1-1.0); Blood Urea Nitrogen 19 mg/dL (8-24); Bun/Creatinine Ratio 16.5 (12.0-20.0); CO2, Blood 28 mmol/L (21-32); Calcium, Blood 8.4 mg/dL (8.5-10.1); Chloride, Blood 107 mmol/L (98-108); Creatinine, Blood 1.15 mg/dL (0.60-1.20); Globulin, Blood 2.3 g/dL (2.2-4.0); Glomerular Filtration Rate >60 (60-); Glucose, Blood 87 mg/dL (70-99); Potassium, Blood 4.2 mmol/L (3.5-5.5); Sodium, Blood 139 mmol/L (136-145); Total Protein, Blood 6.2 g/dL (6.4-8.2)
--- NOTE | 2019-04-17 12:02 | NUR ---
Pt left unit to have lunch. He will return at 1330 for a blood transfusion.
== END 2019-04-17 15:43 | disposition home or self-care (01) ==
LOC: ATC 00:07
PROVIDERS: Internal Medicine Hematology & Oncology
PROC: 30243N1 Transfusion of Nonautologous Red Blood Cells into Central Vein, Percutaneous Approach (ICD-10-PCS; principal; 2019-04-17)
DX: C82.25 Follicular lymphoma grade III, unspecified, lymph nodes of inguinal region and lower limb (principal); C85.94 Non-Hodgkin lymphoma, unspecified, lymph nodes of axilla and upper limb; C85.91 Non-Hodgkin lymphoma, unspecified, lymph nodes of head, face, and neck; D64.9 Anemia, unspecified; D69.59 Other secondary thrombocytopenia; G43.909 Migraine, unspecified, not intractable, without status migrainosus; F32.9 Major depressive disorder, single episode, unspecified; G89.29 Other chronic pain; M54.5 Low back pain; G47.00 Insomnia, unspecified; Z79.01 Long term (current) use of anticoagulants; Z79.899 Other long term (current) drug therapy
CPT/HCPCS: 36430; 80053; 85025; 86850; 86900; 86901; 86923; J1642; J7050; P9040

== ENCOUNTER 2019-04-24 00:05 | Day surgery (SDC) | payer MEDICARE, OTHER ==
[2019-04-24 11:57] LABS: BASOPHILS ABSOLUTE AUTO 0.02 K/mm3 (0.00-0.23); BASOPHILS PERCENT AUTO 1 % (0-2); EOSINOPHILS ABSOLUTE AUTO 0.08 K/mm3 (0.00-0.68); EOSINOPHILS PERCENT AUTO 3 % (0-6); Hematocrit 24.1 % (37.0-53.0); Hemoglobin 8.3 g/dL (13.5-17.5); IMMATURE GRAN ABSOLUTE AUTO 0.03 K/mm3 (0.00-0.10); IMMATURE GRAN PERCENT AUTO 1 % (0-1); LYMPHOCYTES ABSOLUTE AUTO 0.93 K/mm3 (0.84-5.20); LYMPHOCYTES PERCENT AUTO 34 % (21-46); MONOCYTES ABSOLUTE AUTO 0.26 K/mm3 (0.16-1.47); MONOCYTES PERCENT AUTO 10 % (4-13); Mean Corpuscular HGB 35.5 pg (26.0-34.0); Mean Corpuscular HGB Conc 34.4 g/dL (31.5-36.5); Mean Corpuscular Volume 103 fL (80-100); Mean Platelet Volume 10.4 fL (9.1-12.4); NEUTROPHILS ABSOLUTE AUTO 1.39 K/mm3 (1.96-9.15); NEUTROPHILS PERCENT AUTO 51 % (41-73); RDW Coefficient Variation 20.9 % (11.7-14.2); RDW Standard Deviation 76.1 fL (35.1-46.3); Red Blood Cell Count 2.34 M/mm3 (4.30-5.90); White Blood Cell Count 2.71 K/mm3 (4.00-11.30)
[2019-04-24 12:19] LABS: Platelet Count 48 K/mm3 (150-400)
[2019-04-24 12:20] LABS: Alanine Aminotransfer (ALT/SGP 15 U/L (12-78); Albumin/Globulin Ratio 1.6 (0.8-1.8); Alk Phos 100 U/L (50-136); Anion Gap 4 mmol/L (6-16); Aspartate Aminotrans (AST/SGOT 10 U/L (12-37); Bilirubin, Total 1.9 mg/dL (0.1-1.0); Blood Urea Nitrogen 16 mg/dL (8-24); Bun/Creatinine Ratio 15.1 (12.0-20.0); CO2, Blood 27 mmol/L (21-32); Calcium, Blood 8.4 mg/dL (8.5-10.1); Chloride, Blood 109 mmol/L (98-108); Creatinine, Blood 1.06 mg/dL (0.60-1.20); Globulin, Blood 2.5 g/dL (2.2-4.0); Glomerular Filtration Rate >60 (60-); Glucose, Blood 95 mg/dL (70-99); Potassium, Blood 3.6 mmol/L (3.5-5.5); Sodium, Blood 140 mmol/L (136-145); Total Protein, Blood 6.5 g/dL (6.4-8.2)
== END 2019-04-24 12:30 | disposition home or self-care (01) ==
LOC: ATC 00:05
PROVIDERS: Internal Medicine
PROC: 30243N1 Transfusion of Nonautologous Red Blood Cells into Central Vein, Percutaneous Approach (ICD-10-PCS; principal; 2019-04-24)
DX: C82.25 Follicular lymphoma grade III, unspecified, lymph nodes of inguinal region and lower limb (principal); C82.24 Follicular lymphoma grade III, unspecified, lymph nodes of axilla and upper limb; C82.21 Follicular lymphoma grade III, unspecified, lymph nodes of head, face, and neck; G43.909 Migraine, unspecified, not intractable, without status migrainosus; F32.9 Major depressive disorder, single episode, unspecified; G89.29 Other chronic pain; M54.5 Low back pain; G47.00 Insomnia, unspecified; Z79.01 Long term (current) use of anticoagulants; Z79.899 Other long term (current) drug therapy; Z87.820 Personal history of traumatic brain injury
CPT/HCPCS: 36591; 80053; 85025; J1642

== ENCOUNTER 2019-05-01 00:29 | Day surgery (SDC) | payer MEDICARE, OTHER | END 2019-05-01 22:59 | disposition home or self-care (01) | LOC: ATC 00:29 | DX: C85.95 Non-Hodgkin lymphoma, unspecified, lymph nodes of inguinal region and lower limb (principal); C85.94 Non-Hodgkin lymphoma, unspecified, lymph nodes of axilla and upper limb; C85.91 Non-Hodgkin lymphoma, unspecified, lymph nodes of head, face, and neck; F32.9 Major depressive disorder, single episode, unspecified; Z79.899 Other long term (current) drug therapy ==

== ENCOUNTER 2019-05-08 07:06 | Day surgery (SDC) | payer MEDICARE, OTHER ==
[2019-05-08 11:38] LABS: BASOPHILS ABSOLUTE AUTO 0.01 K/mm3 (0.00-0.23); BASOPHILS PERCENT AUTO 0 % (0-2); EOSINOPHILS ABSOLUTE AUTO 0.06 K/mm3 (0.00-0.68); EOSINOPHILS PERCENT AUTO 2 % (0-6); Hematocrit 22.5 % (37.0-53.0); Hemoglobin 7.7 g/dL (13.5-17.5); IMMATURE GRAN ABSOLUTE AUTO 0.04 K/mm3 (0.00-0.10); IMMATURE GRAN PERCENT AUTO 1 % (0-1); LYMPHOCYTES PERCENT AUTO 32 % (21-46); MONOCYTES ABSOLUTE AUTO 0.26 K/mm3 (0.16-1.47); MONOCYTES PERCENT AUTO 9 % (4-13); Mean Corpuscular HGB 37.4 pg (26.0-34.0); Mean Corpuscular HGB Conc 34.2 g/dL (31.5-36.5); Mean Platelet Volume 11.3 fL (9.1-12.4); NEUTROPHILS ABSOLUTE AUTO 1.57 K/mm3 (1.96-9.15); NEUTROPHILS PERCENT AUTO 55 % (41-73); RDW Coefficient Variation 19.9 % (11.7-14.2); RDW Standard Deviation 76.3 fL (35.1-46.3); Red Blood Cell Count 2.06 M/mm3 (4.30-5.90); White Blood Cell Count 2.84 K/mm3 (4.00-11.30)
[2019-05-08 11:40] LABS: Mean Corpuscular Volume 109 fL (80-100)
[2019-05-08 11:42] LABS: Platelet Count 46 K/mm3 (150-400)
== END 2019-05-08 11:58 | disposition home or self-care (01) ==
LOC: ATC 07:06
PROVIDERS: Internal Medicine Hematology & Oncology
DX: Z01.89 Encounter for other specified special examinations (principal); Z79.899 Other long term (current) drug therapy
CPT/HCPCS: 36591; 85025; J1642

== ENCOUNTER 2019-05-25 00:14 | Day surgery (SDC) | payer MEDICARE, OTHER ==
[2019-05-25 12:05] LABS: BASOPHILS ABSOLUTE AUTO 0.01 K/mm3 (0.00-0.23); BASOPHILS PERCENT AUTO 0 % (0-2); EOSINOPHILS ABSOLUTE AUTO 0.05 K/mm3 (0.00-0.68); EOSINOPHILS PERCENT AUTO 2 % (0-6); Hematocrit 24.1 % (37.0-53.0); Hemoglobin 8.2 g/dL (13.5-17.5); IMMATURE GRAN ABSOLUTE AUTO 0.04 K/mm3 (0.00-0.10); IMMATURE GRAN PERCENT AUTO 1 % (0-1); LYMPHOCYTES ABSOLUTE AUTO 0.74 K/mm3 (0.84-5.20); LYMPHOCYTES PERCENT AUTO 25 % (21-46); MONOCYTES ABSOLUTE AUTO 0.33 K/mm3 (0.16-1.47); MONOCYTES PERCENT AUTO 11 % (4-13); Mean Corpuscular HGB 37.6 pg (26.0-34.0); Mean Corpuscular Volume 111 fL (80-100); Mean Platelet Volume 10.5 fL (9.1-12.4); NEUTROPHILS ABSOLUTE AUTO 1.83 K/mm3 (1.96-9.15); NEUTROPHILS PERCENT AUTO 61 % (41-73); Platelet Count 66 K/mm3 (150-400); RDW Standard Deviation 83.7 fL (35.1-46.3); Red Blood Cell Count 2.18 M/mm3 (4.30-5.90)
[2019-05-25] MEDS ORDERED: POTCHL20ER PO (12:13)
[2019-05-25 12:21] LABS: Alanine Aminotransfer (ALT/SGP 23 U/L (12-78); Albumin, Blood 4.2 g/dL (3.4-5.0); Albumin/Globulin Ratio 1.6 (0.8-1.8); Alk Phos 107 U/L (50-136); Anion Gap 2 mmol/L (6-16); Aspartate Aminotrans (AST/SGOT 13 U/L (12-37); Bilirubin, Total 1.4 mg/dL (0.1-1.0); Blood Urea Nitrogen 21 mg/dL (8-24); Bun/Creatinine Ratio 19.6 (12.0-20.0); CO2, Blood 26 mmol/L (21-32); Calcium, Blood 8.9 mg/dL (8.5-10.1); Chloride, Blood 112 mmol/L (98-108); Creatinine, Blood 1.07 mg/dL (0.60-1.20); Globulin, Blood 2.6 g/dL (2.2-4.0); Glomerular Filtration Rate >60 (60-); Glucose, Blood 94 mg/dL (70-99); Potassium, Blood 3.9 mmol/L (3.5-5.5); Sodium, Blood 140 mmol/L (136-145); Total Protein, Blood 6.8 g/dL (6.4-8.2)
== END 2019-05-25 12:28 | disposition home or self-care (01) ==
LOC: ATC 00:14
PROVIDERS: Internal Medicine
DX: C80.1 Malignant (primary) neoplasm, unspecified (principal); Z79.01 Long term (current) use of anticoagulants; Z79.899 Other long term (current) drug therapy
CPT/HCPCS: 80053; 85025; 86850; 86900; 86901; 96523; J1642

== ENCOUNTER 2019-05-25 00:15 | Day surgery (SDC) | payer MEDICARE, OTHER ==
[2019-05-25] MEDS ORDERED: POTCHL20ER PO (12:13)
== END 2019-05-25 23:03 | disposition home or self-care (01) ==
LOC: ATC 00:15
DX: D64.9 Anemia, unspecified (principal); Z79.01 Long term (current) use of anticoagulants; Z79.899 Other long term (current) drug therapy

== ENCOUNTER 2019-06-29 00:11 | Day surgery (SDC) | payer MEDICARE, OTHER ==
[~2019-06-29 00:11] MED LIST changes: +POTCHL20ER PO
[2019-06-29 09:30] LABS: BASOPHILS ABSOLUTE AUTO 0.01 K/mm3 (0.00-0.23); BASOPHILS PERCENT AUTO 0 % (0-2); EOSINOPHILS PERCENT AUTO 4 % (0-6); Hematocrit 23.6 % (37.0-53.0); Hemoglobin 7.8 g/dL (13.5-17.5); IMMATURE GRAN ABSOLUTE AUTO 0.04 K/mm3 (0.00-0.10); IMMATURE GRAN PERCENT AUTO 2 % (0-1); LYMPHOCYTES ABSOLUTE AUTO 0.72 K/mm3 (0.84-5.20); LYMPHOCYTES PERCENT AUTO 28 % (21-46); MONOCYTES ABSOLUTE AUTO 0.27 K/mm3 (0.16-1.47); MONOCYTES PERCENT AUTO 11 % (4-13); Mean Corpuscular HGB 41.1 pg (26.0-34.0); Mean Corpuscular HGB Conc 33.1 g/dL (31.5-36.5); Mean Corpuscular Volume 124 fL (80-100); Mean Platelet Volume 9.9 fL (9.1-12.4); NEUTROPHILS ABSOLUTE AUTO 1.44 K/mm3 (1.96-9.15); NEUTROPHILS PERCENT AUTO 56 % (41-73); Platelet Count 80 K/mm3 (150-400); RDW Standard Deviation 83.1 fL (35.1-46.3); White Blood Cell Count 2.58 K/mm3 (4.00-11.30)
[2019-06-29 09:44] LABS: Alanine Aminotransfer (ALT/SGP 20 U/L (12-78); Albumin, Blood 4.1 g/dL (3.4-5.0); Albumin/Globulin Ratio 1.8 (0.8-1.8); Alk Phos 137 U/L (50-136); Anion Gap 2 mmol/L (6-16); Aspartate Aminotrans (AST/SGOT 12 U/L (12-37); Bilirubin, Total 1.3 mg/dL (0.1-1.0); Blood Urea Nitrogen 15 mg/dL (8-24); Bun/Creatinine Ratio 12.5 (12.0-20.0); CO2, Blood 27 mmol/L (21-32); Calcium, Blood 8.3 mg/dL (8.5-10.1); Chloride, Blood 111 mmol/L (98-108); Globulin, Blood 2.3 g/dL (2.2-4.0); Glomerular Filtration Rate >60 (60-); Glucose, Blood 78 mg/dL (70-99); Potassium, Blood 4.1 mmol/L (3.5-5.5); Sodium, Blood 140 mmol/L (136-145); Total Protein, Blood 6.4 g/dL (6.4-8.2)
== END 2019-06-29 09:59 | disposition home or self-care (01) ==
LOC: ATC 00:11
PROVIDERS: Internal Medicine Hematology & Oncology
DX: C82.25 Follicular lymphoma grade III, unspecified, lymph nodes of inguinal region and lower limb (principal); C82.24 Follicular lymphoma grade III, unspecified, lymph nodes of axilla and upper limb; C82.21 Follicular lymphoma grade III, unspecified, lymph nodes of head, face, and neck; D69.6 Thrombocytopenia, unspecified; G43.909 Migraine, unspecified, not intractable, without status migrainosus; F32.9 Major depressive disorder, single episode, unspecified; G89.29 Other chronic pain; M54.5 Low back pain; G47.00 Insomnia, unspecified; Z79.01 Long term (current) use of anticoagulants; Z79.899 Other long term (current) drug therapy; Z87.820 Personal history of traumatic brain injury
CPT/HCPCS: 36415; 80053; 85025; 96523; J1642

== ENCOUNTER 2020-07-16 10:18 | Day surgery (SDC) | payer MEDICARE, SELFPAY ==
[2020-07-16] MEDS ORDERED: REMERON15 M1 PO (14:28)
[2020-07-16] MEDS ORDERED: OXYC5 PO (14:31)
== END 2020-07-16 18:20 | disposition home or self-care (01) ==
LOC: ATC 10:18
DX: C82.90 Follicular lymphoma, unspecified, unspecified site (principal); D75.9 Disease of blood and blood-forming organs, unspecified; Z88.8 Allergy status to other drugs, medicaments and biological substances
CPT/HCPCS: 36415; 36430; 86850; 86900; 86901; 86923; J1642; J7050; P9037; P9040

== ENCOUNTER 2020-08-09 00:44 | Day surgery (SDC) | payer MEDICARE, SELFPAY ==
[~2020-08-09 00:44] MED LIST changes: +OXYC5 PO; +REMERON15 M1 PO
[2020-08-09] MEDS ORDERED: [UNRECOGNIZED DRUG - OTHER] PO (14:51)
== END 2020-08-09 18:18 | disposition home or self-care (01) ==
LOC: ATC 00:44
DX: C82.30 Follicular lymphoma grade IIIa, unspecified site (principal); Z88.8 Allergy status to other drugs, medicaments and biological substances
CPT/HCPCS: 36430; 86850; 86900; 86901; 86923; 96372; J7050; P9016; Q5110

== ENCOUNTER 2020-08-15 14:19 | Day surgery (SDC) | payer MEDICARE, SELFPAY ==
[~2020-08-15 14:19] MED LIST changes: +[UNRECOGNIZED DRUG - OTHER] PO
[2020-08-15] MEDS ORDERED: MIRT15 (15:20)
== END 2020-08-15 15:18 | disposition home or self-care (01) ==
LOC: ATC 14:19
DX: C82.30 Follicular lymphoma grade IIIa, unspecified site (principal); Z88.8 Allergy status to other drugs, medicaments and biological substances; C82.18 Follicular lymphoma grade II, lymph nodes of multiple sites
CPT/HCPCS: 36415; 80053; 83615; 85025; 96372; Q5110

== ENCOUNTER 2020-08-20 08:51 | Day surgery (SDC) | payer MEDICARE, SELFPAY ==
[~2020-08-20 08:51] MED LIST changes: +MIRT15
--- NOTE | 2020-08-20 14:07 | NUR ---
BLOOD DRAWN WITH IV START.
== END 2020-08-20 16:35 | disposition home or self-care (01) ==
LOC: ATC 08:51
DX: C82.90 Follicular lymphoma, unspecified, unspecified site (principal); F32.9 Major depressive disorder, single episode, unspecified; F41.9 Anxiety disorder, unspecified; M54.9 Dorsalgia, unspecified; Q21.1 Atrial septal defect
CPT/HCPCS: 36430; 86850; 86900; 86901; 86923; J7050; P9040

== ENCOUNTER 2020-08-30 09:59 | Day surgery (SDC) | payer MEDICARE, SELFPAY | END 2020-08-30 15:44 | disposition home or self-care (01) | LOC: ATC 09:59 | DX: C82.38 Follicular lymphoma grade IIIa, lymph nodes of multiple sites (principal); Q21.1 Atrial septal defect; G43.909 Migraine, unspecified, not intractable, without status migrainosus; Z92.21 Personal history of antineoplastic chemotherapy; Z88.8 Allergy status to other drugs, medicaments and biological substances | CPT/HCPCS: 36415; 36430; 86850; 86900; 86901; 86923; 96372; J7050; P9016; Q5110 ==

== ENCOUNTER 2020-09-09 14:15 | Day surgery (SDC) | payer MEDICARE, SELFPAY | END 2020-09-09 16:30 | disposition home or self-care (01) | LOC: ATC 14:15 | DX: C82.18 Follicular lymphoma grade II, lymph nodes of multiple sites (principal); Q21.1 Atrial septal defect; G43.909 Migraine, unspecified, not intractable, without status migrainosus; M54.9 Dorsalgia, unspecified; Z92.21 Personal history of antineoplastic chemotherapy; Z88.8 Allergy status to other drugs, medicaments and biological substances | CPT/HCPCS: 36415; 80053; 83615; 84478; 84550; 85025; 96372; Q5110 ==

== ENCOUNTER 2020-09-13 12:05 | Day surgery (SDC) | payer MEDICARE, SELFPAY ==
[2020-09-12 10:44] LABS: BASOPHILS PERCENT AUTO 0 % (0-2); Hematocrit 20.3 % (37.0-53.0); Hemoglobin 6.6 g/dL (13.5-17.5); Mean Corpuscular HGB 31.9 pg (26.0-34.0); Mean Corpuscular HGB Conc 32.5 g/dL (31.5-36.5); Mean Corpuscular Volume 98 fL (80-100); Mean Platelet Volume 12.8 fL (9.1-12.4); RDW Coefficient Variation 19.2 % (11.7-14.2); RDW Standard Deviation 63.5 fL (35.1-46.3); Red Blood Cell Count 2.07 M/mm3 (4.30-5.90); White Blood Cell Count 1.82 K/mm3 (4.00-11.30)
[2020-09-12 10:46] LABS: Alanine Aminotransfer (ALT/SGP 55 U/L (12-78); Albumin, Blood 3.5 g/dL (3.4-5.0); Albumin/Globulin Ratio 1.2 (0.8-1.8); Alk Phos 124 U/L (50-136); Anion Gap 6 mmol/L (6-16); Aspartate Aminotrans (AST/SGOT 36 U/L (12-37); Bilirubin, Total 1.5 mg/dL (0.1-1.0); Blood Urea Nitrogen 14 mg/dL (8-24); Bun/Creatinine Ratio 11.8 (12.0-20.0); CO2, Blood 25 mmol/L (21-32); Calcium, Blood 8.8 mg/dL (8.5-10.1); Chloride, Blood 106 mmol/L (98-108); Creatinine, Blood 1.19 mg/dL (0.60-1.20); Globulin, Blood 2.9 g/dL (2.2-4.0); Glomerular Filtration Rate >60 (60-); Glucose, Blood 96 mg/dL (70-99); Lactate Dehydrogenase (Ld),Bld 452 U/L (100-240); Potassium, Blood 3.5 mmol/L (3.5-5.5); Sodium, Blood 137 mmol/L (136-145); Total Protein, Blood 6.4 g/dL (6.4-8.2); Uric Acid, Blood 5.8 mg/dL (3.5-7.2)
[2020-09-12 10:57] LABS: EOSINOPHILS ABSOLUTE AUTO 0.05 K/mm3 (0.00-0.68); EOSINOPHILS PERCENT AUTO 3 % (0-6); IMMATURE GRAN ABSOLUTE AUTO 0.22 K/mm3 (0.00-0.10); IMMATURE GRAN PERCENT AUTO 12 % (0-1); LYMPHOCYTES ABSOLUTE AUTO 0.63 K/mm3 (0.84-5.20); LYMPHOCYTES PERCENT AUTO 35 % (21-46); MONOCYTES ABSOLUTE AUTO 0.11 K/mm3 (0.16-1.47); MONOCYTES PERCENT AUTO 6 % (4-13); NEUTROPHILS ABSOLUTE AUTO 0.81 K/mm3 (1.96-9.15); NEUTROPHILS PERCENT AUTO 45 % (41-73)
[2020-09-12 11:00] LABS: Platelet Count 13 K/mm3 (150-400)
== END 2020-09-13 16:40 | disposition home or self-care (01) ==
LOC: ATC 12:05 → EDSTATUS 12:06 → ATC 16:40
PROVIDERS: Internal Medicine Hematology & Oncology
DX: C82.18 Follicular lymphoma grade II, lymph nodes of multiple sites (principal); C82.00 Follicular lymphoma grade I, unspecified site; D70.1 Agranulocytosis secondary to cancer chemotherapy; D61.818 Other pancytopenia; E44.0 Moderate protein-calorie malnutrition; T45.1X5A Adverse effect of antineoplastic and immunosuppressive drugs, initial encounter; X58.XXXA Exposure to other specified factors, initial encounter
CPT/HCPCS: 36415; 36430; 80053; 83615; 84550; 85025; 86850; 86900; 86901; 86923; 96372; J7050; P9016; Q5110

== ENCOUNTER 2020-09-17 01:02 | Day surgery (SDC) | payer MEDICARE, OTHER | END 2020-09-17 15:21 | disposition home or self-care (01) | LOC: ATC 01:02 | DX: C82.18 Follicular lymphoma grade II, lymph nodes of multiple sites (principal); Z88.8 Allergy status to other drugs, medicaments and biological substances | CPT/HCPCS: 36415; 36430; 86850; 86900; 86901; 86923; J1642; J7050; P9040 ==

== ENCOUNTER 2020-09-20 09:33 | Day surgery (SDC) | payer MEDICARE ==
--- NOTE | 2020-09-20 15:48 | NUR ---
NO S/S OF REACTION.
== END 2020-09-20 15:40 | disposition home or self-care (01) ==
LOC: ATC 09:33
DX: C82.18 Follicular lymphoma grade II, lymph nodes of multiple sites (principal); F32.9 Major depressive disorder, single episode, unspecified; J18.1 Lobar pneumonia, unspecified organism; G43.909 Migraine, unspecified, not intractable, without status migrainosus
CPT/HCPCS: 36430; 86850; 86900; 86901; 86923; 96372; J7050; P9040; Q5110

== ENCOUNTER 2020-09-25 00:18 | Day surgery (SDC) | payer MEDICARE | END 2020-09-25 10:59 | disposition home or self-care (01) | LOC: ATC 00:18 | DX: C82.18 Follicular lymphoma grade II, lymph nodes of multiple sites (principal); D75.9 Disease of blood and blood-forming organs, unspecified; Q21.1 Atrial septal defect; G43.909 Migraine, unspecified, not intractable, without status migrainosus; Z87.820 Personal history of traumatic brain injury; Z88.8 Allergy status to other drugs, medicaments and biological substances; Z92.21 Personal history of antineoplastic chemotherapy | CPT/HCPCS: 36415; 36430; 86850; 86900; 86901; 86923; 96372; J7050; P9016; Q5110 ==

== ENCOUNTER 2020-10-01 00:08 | Day surgery (SDC) | payer MEDICARE | END 2020-10-01 15:55 | disposition home or self-care (01) | LOC: ATC 00:08 | DX: C82.18 Follicular lymphoma grade II, lymph nodes of multiple sites (principal); Z88.8 Allergy status to other drugs, medicaments and biological substances | CPT/HCPCS: 36430; 86850; 86900; 86901; 86923; 96372; J7050; P9040; Q5110 ==

== ENCOUNTER 2020-10-11 08:00 | Day surgery (SDC) | payer MEDICARE | END 2020-10-11 23:59 | disposition home or self-care (01) | LOC: ATC 08:00 | DX: C82.18 Follicular lymphoma grade II, lymph nodes of multiple sites (principal); Z88.8 Allergy status to other drugs, medicaments and biological substances | CPT/HCPCS: 36415 ==

== ENCOUNTER 2020-10-15 08:14 | Day surgery (SDC) | payer MEDICARE | END 2020-10-15 14:43 | disposition home or self-care (01) | LOC: ATC 08:14 | DX: C82.18 Follicular lymphoma grade II, lymph nodes of multiple sites (principal) | CPT/HCPCS: 96372; Q5110 ==

== ENCOUNTER 2020-10-17 14:43 | Day surgery (SDC) | payer MEDICARE | END 2020-10-17 15:32 | disposition home or self-care (01) | LOC: ATC 14:43 | DX: C82.18 Follicular lymphoma grade II, lymph nodes of multiple sites (principal); Z88.8 Allergy status to other drugs, medicaments and biological substances; C82.00 Follicular lymphoma grade I, unspecified site; D61.818 Other pancytopenia; T45.1X5A Adverse effect of antineoplastic and immunosuppressive drugs, initial encounter | CPT/HCPCS: 36415; 80053; 83615; 84550; 85025; 96372; Q5110 ==

== ENCOUNTER 2020-10-22 03:41 | Day surgery (SDC) | payer MEDICARE | END 2020-10-22 16:00 | disposition home or self-care (01) | LOC: ATC 03:41 | DX: D61.818 Other pancytopenia (principal); Z88.8 Allergy status to other drugs, medicaments and biological substances | CPT/HCPCS: 36415; 36430; 86850; 86900; 86901; 86923; 96372; J7050; P9016; Q5110 ==

== ENCOUNTER 2020-10-25 00:21 | Day surgery (SDC) | payer MEDICARE | END 2020-10-25 13:55 | disposition home or self-care (01) | LOC: ATC 00:21 | DX: C82.18 Follicular lymphoma grade II, lymph nodes of multiple sites (principal); Z92.21 Personal history of antineoplastic chemotherapy; Z88.8 Allergy status to other drugs, medicaments and biological substances | CPT/HCPCS: 96372; Q5110 ==

== ENCOUNTER 2020-10-29 03:15 | Day surgery (SDC) | payer MEDICARE | END 2020-10-29 11:20 | disposition home or self-care (01) | LOC: ATC 03:15 | DX: C81.18 Nodular sclerosis Hodgkin lymphoma, lymph nodes of multiple sites (principal) | CPT/HCPCS: 96372; Q5110 ==

== ENCOUNTER 2020-11-01 00:50 | Day surgery (SDC) | payer MEDICARE | END 2020-11-01 16:05 | disposition home or self-care (01) | LOC: ATC 00:50 | DX: C82.18 Follicular lymphoma grade II, lymph nodes of multiple sites (principal); Z88.8 Allergy status to other drugs, medicaments and biological substances; Z92.21 Personal history of antineoplastic chemotherapy; D75.9 Disease of blood and blood-forming organs, unspecified | CPT/HCPCS: 36415; 36430; 86850; 86900; 86901; 86923; 96372; J1447; J7050; P9040; Q5110 ==

== ENCOUNTER 2020-11-08 09:29 | Day surgery (SDC) | payer MEDICARE ==
[2020-11-07 13:47] LABS: BASOPHILS PERCENT AUTO 0 % (0-2); Mean Corpuscular HGB 32.6 pg (26.0-34.0); Mean Corpuscular HGB Conc 32.6 g/dL (31.5-36.5); Mean Corpuscular Volume 100 fL (80-100); RDW Coefficient Variation 21.7 % (11.7-14.2); RDW Standard Deviation 75.5 fL (35.1-46.3); Red Blood Cell Count 1.78 M/mm3 (4.30-5.90); White Blood Cell Count 1.07 K/mm3 (4.00-11.30)
[2020-11-07 13:56] LABS: EOSINOPHILS ABSOLUTE AUTO 0.01 K/mm3 (0.00-0.68); EOSINOPHILS PERCENT AUTO 1 % (0-6); IMMATURE GRAN ABSOLUTE AUTO 0.04 K/mm3 (0.00-0.10); IMMATURE GRAN PERCENT AUTO 4 % (0-1); LYMPHOCYTES ABSOLUTE AUTO 0.51 K/mm3 (0.84-5.20); LYMPHOCYTES PERCENT AUTO 48 % (21-46); MONOCYTES ABSOLUTE AUTO 0.12 K/mm3 (0.16-1.47); MONOCYTES PERCENT AUTO 11 % (4-13); NEUTROPHILS ABSOLUTE AUTO 0.39 K/mm3 (1.96-9.15); NEUTROPHILS PERCENT AUTO 37 % (41-73)
[2020-11-07 14:19] LABS: Hemoglobin 5.8 g/dL (13.5-17.5)
[2020-11-07 14:20] LABS: Hematocrit 17.8 % (37.0-53.0); Platelet Count 17 K/mm3 (150-400)
[2020-11-07 14:47] LABS: Lactate Dehydrogenase (Ld),Bld 354 U/L (100-240); Uric Acid, Blood 9.5 mg/dL (3.5-7.2)
[2020-11-07 14:48] LABS: Alanine Aminotransfer (ALT/SGP 35 U/L (12-78); Albumin, Blood 3.4 g/dL (3.4-5.0); Albumin/Globulin Ratio 1.2 (0.8-1.8); Alk Phos 115 U/L (50-136); Anion Gap 8 mmol/L (6-16); Aspartate Aminotrans (AST/SGOT 27 U/L (12-37); Bilirubin, Total 1.6 mg/dL (0.1-1.0); Blood Urea Nitrogen 21 mg/dL (8-24); Bun/Creatinine Ratio 16.2 (12.0-20.0); CO2, Blood 24 mmol/L (21-32); Calcium, Blood 9.9 mg/dL (8.5-10.1); Chloride, Blood 105 mmol/L (98-108); Globulin, Blood 2.9 g/dL (2.2-4.0); Glomerular Filtration Rate >60 (60-); Glucose, Blood 120 mg/dL (70-99); Potassium, Blood 3.7 mmol/L (3.5-5.5); Sodium, Blood 137 mmol/L (136-145); Total Protein, Blood 6.3 g/dL (6.4-8.2); Triglycerides 192 mg/dL (30-160)
== END 2020-11-08 17:05 | disposition home or self-care (01) ==
LOC: ATC 09:29 → EDSTATUS 14:30 → ATC 17:05
PROVIDERS: Internal Medicine Hematology & Oncology
DX: C82.18 Follicular lymphoma grade II, lymph nodes of multiple sites (principal); D61.818 Other pancytopenia; E44.0 Moderate protein-calorie malnutrition
CPT/HCPCS: 36415; 36430; 80053; 83615; 84478; 84550; 85025; 86850; 86900; 86901; 86923; 96372; J7050; P9040; Q5110

== ENCOUNTER 2020-11-13 02:36 | Day surgery (SDC) | payer MEDICARE ==
[2020-11-11 15:25] LABS: Mean Corpuscular HGB 32.6 pg (26.0-34.0); Mean Corpuscular HGB Conc 33.9 g/dL (31.5-36.5); Mean Corpuscular Volume 96 fL (80-100); Mean Platelet Volume 12.8 fL (9.1-12.4); RDW Coefficient Variation 22.3 % (11.7-14.2); RDW Standard Deviation 74.3 fL (35.1-46.3); Red Blood Cell Count 1.81 M/mm3 (4.30-5.90); White Blood Cell Count 1.22 K/mm3 (4.00-11.30)
[2020-11-11 15:43] LABS: Uric Acid, Blood 6.3 mg/dL (3.5-7.2)
[2020-11-11 15:48] LABS: Hematocrit 17.4 % (37.0-53.0); Hemoglobin 5.9 g/dL (13.5-17.5); Platelet Count 17 K/mm3 (150-400)
[2020-11-11 15:54] LABS: BAND PERCENT MAN 2 % (0-8); BASOPHILS ABSOLUTE MAN 0.01 K/mm3 (0.00-0.23); BASOPHILS PERCENT MAN 1 % (0-2); EOSINOPHILS PERCENT MAN 0 % (0-6); LYMPHOCYTES ABSOLUTE MAN 0.68 K/mm3 (0.84-5.20); LYMPHOCYTES PERCENT MAN 56 % (21-46); MONOCYTES ABSOLUTE MAN 0.19 K/mm3 (0.16-1.47); MONOCYTES PERCENT MAN 16 % (4-13); NEUTROPHILS ABSOLUTE MAN 0.32 K/mm3 (1.96-9.15); SEG NEUTROPHILS PERCENT MAN 25 % (41-73); TOTAL CELLS COUNTED 100
[2020-11-11 16:05] LABS: Albumin, Blood 3.4 g/dL (3.4-5.0); Albumin/Globulin Ratio 1.2 (0.8-1.8); Bun/Creatinine Ratio 15.8 (12.0-20.0); Calcium, Blood 9.8 mg/dL (8.5-10.1); Creatinine, Blood 1.39 mg/dL (0.60-1.20); Globulin, Blood 2.9 g/dL (2.2-4.0); Potassium, Blood 3.8 mmol/L (3.5-5.5); Total Protein, Blood 6.3 g/dL (6.4-8.2)
== END 2020-11-13 10:00 | disposition home or self-care (01) ==
LOC: ATC 02:36 → EDSTATUS 08:00 → ATC 08:00
PROVIDERS: Internal Medicine Hematology & Oncology
DX: D61.818 Other pancytopenia (principal); C82.18 Follicular lymphoma grade II, lymph nodes of multiple sites; D70.1 Agranulocytosis secondary to cancer chemotherapy; T45.1X5A Adverse effect of antineoplastic and immunosuppressive drugs, initial encounter; E44.0 Moderate protein-calorie malnutrition; Z88.8 Allergy status to other drugs, medicaments and biological substances
CPT/HCPCS: 36415; 36430; 80053; 83615; 84550; 85025; 86850; 86900; 86901; 86923; 96372; J7050; P9040; Q5110

== ENCOUNTER 2020-11-15 04:38 | Day surgery (SDC) | payer MEDICARE | END 2020-11-15 11:00 | disposition home or self-care (01) | LOC: ATC 04:38 | DX: C82.18 Follicular lymphoma grade II, lymph nodes of multiple sites (principal); Z88.8 Allergy status to other drugs, medicaments and biological substances | CPT/HCPCS: 36430; 86850; 86900; 86901; 86923; 96372; J7050; P9040; Q5110 ==

== ENCOUNTER 2020-11-19 00:07 | Day surgery (SDC) | payer MEDICARE ==
[2020-11-18 10:35] LABS: Hemoglobin 6.6 g/dL (13.5-17.5); Mean Corpuscular HGB 31.7 pg (26.0-34.0); Mean Corpuscular Volume 96 fL (80-100); Mean Platelet Volume 12.4 fL (9.1-12.4); RDW Coefficient Variation 20.7 % (11.7-14.2); RDW Standard Deviation 69.2 fL (35.1-46.3); Red Blood Cell Count 2.08 M/mm3 (4.30-5.90); White Blood Cell Count 1.12 K/mm3 (4.00-11.30)
[2020-11-18 11:42] LABS: Platelet Count 15 K/mm3 (150-400)
[2020-11-18 11:52] LABS: BAND PERCENT MAN 2 % (0-8); BASOPHILS ABSOLUTE MAN 0.01 K/mm3 (0.00-0.23); BASOPHILS PERCENT MAN 1 % (0-2); EOSINOPHILS ABSOLUTE MAN 0.01 K/mm3 (0.00-0.68); EOSINOPHILS PERCENT MAN 1 % (0-6); LYMPHOCYTES ABSOLUTE MAN 0.48 K/mm3 (0.84-5.20); LYMPHOCYTES PERCENT MAN 43 % (21-46); MONOCYTES ABSOLUTE MAN 0.13 K/mm3 (0.16-1.47); MONOCYTES PERCENT MAN 12 % (4-13); NEUTROPHILS ABSOLUTE MAN 0.48 K/mm3 (1.96-9.15); SEG NEUTROPHILS PERCENT MAN 41 % (41-73); TOTAL CELLS COUNTED 100
[2020-11-18 12:37] LABS: Uric Acid, Blood 8.8 mg/dL (3.5-7.2)
[2020-11-18 13:20] LABS: Alanine Aminotransfer (ALT/SGP 59 U/L (12-78); Albumin, Blood 3.3 g/dL (3.4-5.0); Albumin/Globulin Ratio 1.2 (0.8-1.8); Alk Phos 114 U/L (50-136); Anion Gap 9 mmol/L (6-16); Aspartate Aminotrans (AST/SGOT 44 U/L (12-37); Bilirubin, Total 1.6 mg/dL (0.1-1.0); Blood Urea Nitrogen 24 mg/dL (8-24); Bun/Creatinine Ratio 15.4 (12.0-20.0); CO2, Blood 26 mmol/L (21-32); Calcium, Blood 10.2 mg/dL (8.5-10.1); Chloride, Blood 102 mmol/L (98-108); Creatinine, Blood 1.56 mg/dL (0.60-1.20); Globulin, Blood 2.8 g/dL (2.2-4.0); Glomerular Filtration Rate 49 (60-); Glucose, Blood 112 mg/dL (70-99); Lactate Dehydrogenase (Ld),Bld 289 U/L (100-240); Potassium, Blood 3.4 mmol/L (3.5-5.5); Sodium, Blood 137 mmol/L (136-145); Total Protein, Blood 6.1 g/dL (6.4-8.2); Triglycerides 197 mg/dL (30-160)
[2020-11-19] MEDS ORDERED: Ritalin5 MG PO (09:50)
[2020-11-19] MEDS ORDERED: FEBUXOSTAT40 MG PO (09:51)
[2020-11-19] MEDS ORDERED: OXYC5 PO (09:52)
== END 2020-11-19 11:23 | disposition home or self-care (01) ==
LOC: ATC 00:07 → EDSTATUS 09:00 → ATC 09:00
PROVIDERS: Internal Medicine Hematology & Oncology
DX: C82.18 Follicular lymphoma grade II, lymph nodes of multiple sites (principal); E44.0 Moderate protein-calorie malnutrition; Z92.21 Personal history of antineoplastic chemotherapy; Z88.8 Allergy status to other drugs, medicaments and biological substances
CPT/HCPCS: 36415; 36430; 80053; 83615; 84478; 84550; 85025; 86850; 86900; 86901; 86923; 96372; J7050; P9040; Q5110

== ENCOUNTER 2020-11-22 05:06 | Day surgery (SDC) | payer MEDICARE ==
[~2020-11-22 05:06] MED LIST changes: +FEBUXOSTAT40 MG PO; +Ritalin5 MG PO
== END 2020-11-22 23:50 | disposition home or self-care (01) ==
LOC: ATC 05:06
DX: D70.1 Agranulocytosis secondary to cancer chemotherapy (principal); D61.818 Other pancytopenia; T45.1X5A Adverse effect of antineoplastic and immunosuppressive drugs, initial encounter; C82.18 Follicular lymphoma grade II, lymph nodes of multiple sites; Z88.8 Allergy status to other drugs, medicaments and biological substances; G43.909 Migraine, unspecified, not intractable, without status migrainosus; Q21.1 Atrial septal defect
CPT/HCPCS: 96372; Q5110

== ENCOUNTER 2020-11-26 05:06 | Day surgery (SDC) | payer MEDICARE ==
[2020-11-25 12:34] LABS: Hematocrit 20.7 % (37.0-53.0); Hemoglobin 6.8 g/dL (13.5-17.5); Mean Corpuscular HGB 32.1 pg (26.0-34.0); Mean Corpuscular HGB Conc 32.9 g/dL (31.5-36.5); Mean Corpuscular Volume 98 fL (80-100); RDW Coefficient Variation 20.7 % (11.7-14.2); RDW Standard Deviation 70.3 fL (35.1-46.3); Red Blood Cell Count 2.12 M/mm3 (4.30-5.90)
[2020-11-25 13:02] LABS: BASOPHILS ABSOLUTE AUTO 0.01 K/mm3 (0.00-0.23); BASOPHILS PERCENT AUTO 1 % (0-2); EOSINOPHILS ABSOLUTE AUTO 0.03 K/mm3 (0.00-0.68); EOSINOPHILS PERCENT AUTO 3 % (0-6); IMMATURE GRAN ABSOLUTE AUTO 0.01 K/mm3 (0.00-0.10); IMMATURE GRAN PERCENT AUTO 1 % (0-1); LYMPHOCYTES ABSOLUTE AUTO 0.48 K/mm3 (0.84-5.20); LYMPHOCYTES PERCENT AUTO 55 % (21-46); MONOCYTES ABSOLUTE AUTO 0.11 K/mm3 (0.16-1.47); MONOCYTES PERCENT AUTO 13 % (4-13); NEUTROPHILS ABSOLUTE AUTO 0.24 K/mm3 (1.96-9.15); NEUTROPHILS PERCENT AUTO 27 % (41-73)
[2020-11-25 13:21] LABS: White Blood Cell Count 0.88 K/mm3 (4.00-11.30)
[2020-11-25 13:22] LABS: Platelet Count 17 K/mm3 (150-400)
[2020-11-25 15:44] LABS: Albumin, Blood 3.4 g/dL (3.4-5.0); Albumin/Globulin Ratio 1.4 (0.8-1.8); Bilirubin, Total 1.6 mg/dL (0.1-1.0); Bun/Creatinine Ratio 12.6 (12.0-20.0); Calcium, Blood 8.7 mg/dL (8.5-10.1); Creatinine, Blood 1.43 mg/dL (0.60-1.20); Globulin, Blood 2.4 g/dL (2.2-4.0); Potassium, Blood 3.6 mmol/L (3.5-5.5); Total Protein, Blood 5.8 g/dL (6.4-8.2); Uric Acid, Blood 8.5 mg/dL (3.5-7.2)
== END 2020-11-26 23:00 | disposition home or self-care (01) ==
LOC: ATC 05:06 → EDSTATUS 13:30 → ATC 13:30
PROVIDERS: Internal Medicine Hematology & Oncology
DX: C82.18 Follicular lymphoma grade II, lymph nodes of multiple sites (principal); Z88.8 Allergy status to other drugs, medicaments and biological substances
CPT/HCPCS: 36415; 36430; 80053; 83615; 84550; 85025; 86850; 86900; 86901; 86923; 96372; J7050; P9040; Q5110

== ENCOUNTER 2020-11-29 01:45 | Day surgery (SDC) | payer MEDICARE | END 2020-11-29 15:10 | disposition home or self-care (01) | LOC: ATC 01:45 | DX: C82.18 Follicular lymphoma grade II, lymph nodes of multiple sites (principal); Z88.8 Allergy status to other drugs, medicaments and biological substances | CPT/HCPCS: 96372; Q5110 ==

== ENCOUNTER 2020-12-03 13:48 | Day surgery (SDC) | payer MEDICARE ==
[2020-12-02 12:19] LABS: Hematocrit 21.4 % (37.0-53.0); Hemoglobin 6.8 g/dL (13.5-17.5); Mean Corpuscular HGB 31.2 pg (26.0-34.0); Mean Corpuscular HGB Conc 31.8 g/dL (31.5-36.5); Mean Corpuscular Volume 98 fL (80-100); Mean Platelet Volume 10.3 fL (9.1-12.4); RDW Coefficient Variation 21.3 % (11.7-14.2); RDW Standard Deviation 71.2 fL (35.1-46.3); Red Blood Cell Count 2.18 M/mm3 (4.30-5.90); White Blood Cell Count 1.19 K/mm3 (4.00-11.30)
[2020-12-02 12:32] LABS: Albumin, Blood 3.4 g/dL (3.4-5.0); Albumin/Globulin Ratio 1.4 (0.8-1.8); Bilirubin, Total 1.6 mg/dL (0.1-1.0); Bun/Creatinine Ratio 12.5 (12.0-20.0); Calcium, Blood 8.6 mg/dL (8.5-10.1); Creatinine, Blood 1.36 mg/dL (0.60-1.20); Globulin, Blood 2.5 g/dL (2.2-4.0); Potassium, Blood 3.8 mmol/L (3.5-5.5); Total Protein, Blood 5.9 g/dL (6.4-8.2); Uric Acid, Blood 9.2 mg/dL (3.5-7.2)
[2020-12-02 13:04] LABS: Platelet Count 17 K/mm3 (150-400)
[2020-12-02 13:11] LABS: BAND PERCENT MAN 3 % (0-8); BASOPHILS ABSOLUTE MAN 0.01 K/mm3 (0.00-0.23); BASOPHILS PERCENT MAN 1 % (0-2); EOSINOPHILS PERCENT MAN 0 % (0-6); LYMPHOCYTES ABSOLUTE MAN 0.57 K/mm3 (0.84-5.20); LYMPHOCYTES PERCENT MAN 48 % (21-46); MONOCYTES ABSOLUTE MAN 0.08 K/mm3 (0.16-1.47); MONOCYTES PERCENT MAN 7 % (4-13); NEUTROPHILS ABSOLUTE MAN 0.52 K/mm3 (1.96-9.15); SEG NEUTROPHILS PERCENT MAN 41 % (41-73); TOTAL CELLS COUNTED 100
--- NOTE | 2020-12-03 15:21 | NUR ---
TOLERATED INFUSION WELL. NO C/O.
== END 2020-12-03 16:43 | disposition home or self-care (01) ==
LOC: ATC 13:48 → EDSTATUS 14:00 → ATC 16:43
PROVIDERS: Internal Medicine Hematology & Oncology
DX: C82.18 Follicular lymphoma grade II, lymph nodes of multiple sites (principal); Z88.8 Allergy status to other drugs, medicaments and biological substances
CPT/HCPCS: 36415; 36430; 80053; 83615; 84550; 85025; 86850; 86900; 86901; 86923; 96372; J7050; P9040; Q5110

== ENCOUNTER 2020-12-06 08:32 | Day surgery (SDC) | payer MEDICARE | END 2020-12-06 16:32 | disposition home or self-care (01) | LOC: ATC 08:32 | DX: D61.818 Other pancytopenia (principal); Z88.8 Allergy status to other drugs, medicaments and biological substances | CPT/HCPCS: 96372; Q5110 ==

== ENCOUNTER 2020-12-10 11:29 | Day surgery (SDC) | payer MEDICARE ==
[2020-12-10 09:35] LABS: Hematocrit 20.5 % (37.0-53.0); Hemoglobin 6.6 g/dL (13.5-17.5); Mean Corpuscular HGB 32.2 pg (26.0-34.0); Mean Corpuscular HGB Conc 32.2 g/dL (31.5-36.5); Mean Corpuscular Volume 100 fL (80-100); Mean Platelet Volume 12.4 fL (9.1-12.4); RDW Coefficient Variation 22.1 % (11.7-14.2); Red Blood Cell Count 2.05 M/mm3 (4.30-5.90)
[2020-12-10 10:06] LABS: IMMATURE GRAN ABSOLUTE AUTO 0.06 K/mm3 (0.00-0.10); IMMATURE GRAN PERCENT AUTO 7 % (0-1); Platelet Count 14 K/mm3 (150-400)
[2020-12-10 10:16] LABS: Alanine Aminotransfer (ALT/SGP 61 U/L (12-78); Albumin, Blood 3.3 g/dL (3.4-5.0); Albumin/Globulin Ratio 1.4 (0.8-1.8); Alk Phos 109 U/L (50-136); Anion Gap 8 mmol/L (6-16); Aspartate Aminotrans (AST/SGOT 39 U/L (12-37); Bilirubin, Total 1.5 mg/dL (0.1-1.0); Blood Urea Nitrogen 17 mg/dL (8-24); Bun/Creatinine Ratio 13.7 (12.0-20.0); CO2, Blood 25 mmol/L (21-32); Chloride, Blood 108 mmol/L (98-108); Creatinine, Blood 1.24 mg/dL (0.60-1.20); Globulin, Blood 2.4 g/dL (2.2-4.0); Glomerular Filtration Rate >60 (60-); Glucose, Blood 93 mg/dL (70-99); Lactate Dehydrogenase (Ld),Bld 243 U/L (100-240); Potassium, Blood 3.5 mmol/L (3.5-5.5); Sodium, Blood 141 mmol/L (136-145); Total Protein, Blood 5.7 g/dL (6.4-8.2); Uric Acid, Blood 7.3 mg/dL (3.5-7.2)
[2020-12-10 10:50] LABS: BASOPHILS PERCENT MAN 0 % (0-2); EOSINOPHILS PERCENT MAN 3 % (0-6); LYMPHOCYTES PERCENT MAN 49 % (21-46); METAMYELOCYTE PERCENT MAN 1 % (0-0); MONOCYTES PERCENT MAN 6 % (4-13); MYELOCYTE PERCENT MAN 1 % (0-0); SEG NEUTROPHILS PERCENT MAN 40 % (41-73); TOTAL CELLS COUNTED 100
== END 2020-12-10 15:54 | disposition home or self-care (01) ==
LOC: ATC 11:29 → EDSTATUS 11:33 → ATC 15:54
PROVIDERS: Internal Medicine Hematology & Oncology
DX: C82.18 Follicular lymphoma grade II, lymph nodes of multiple sites (principal); D61.818 Other pancytopenia; D70.1 Agranulocytosis secondary to cancer chemotherapy; T45.1X5A Adverse effect of antineoplastic and immunosuppressive drugs, initial encounter; E44.0 Moderate protein-calorie malnutrition; Z92.21 Personal history of antineoplastic chemotherapy; Z88.8 Allergy status to other drugs, medicaments and biological substances
CPT/HCPCS: 36415; 36430; 80053; 83615; 84550; 85025; 86850; 86900; 86901; 86923; 96372; J7050; P9040; Q5110

== ENCOUNTER 2020-12-12 13:33 | Day surgery (SDC) | payer MEDICARE | END 2020-12-12 14:36 | disposition home or self-care (01) | LOC: ATC 13:33 | DX: D61.818 Other pancytopenia (principal); C82.18 Follicular lymphoma grade II, lymph nodes of multiple sites; Z88.8 Allergy status to other drugs, medicaments and biological substances; Z79.899 Other long term (current) drug therapy; C82.00 Follicular lymphoma grade I, unspecified site; D70.1 Agranulocytosis secondary to cancer chemotherapy; E44.0 Moderate protein-calorie malnutrition; T45.1X5A Adverse effect of antineoplastic and immunosuppressive drugs, initial encounter | CPT/HCPCS: 36415; 80053; 83615; 84478; 84550; 85025; 96372; Q5110 ==

== ENCOUNTER 2020-12-17 00:40 | Day surgery (SDC) | payer MEDICARE ==
[2020-12-16 11:25] LABS: Hematocrit 20.7 % (37.0-53.0); Hemoglobin 6.7 g/dL (13.5-17.5); Mean Corpuscular HGB 32.2 pg (26.0-34.0); Mean Corpuscular HGB Conc 32.4 g/dL (31.5-36.5); Mean Corpuscular Volume 100 fL (80-100); RDW Coefficient Variation 21.9 % (11.7-14.2); RDW Standard Deviation 75.5 fL (35.1-46.3); Red Blood Cell Count 2.08 M/mm3 (4.30-5.90)
[2020-12-16 11:28] LABS: Alanine Aminotransfer (ALT/SGP 55 U/L (12-78); Albumin, Blood 3.4 g/dL (3.4-5.0); Albumin/Globulin Ratio 1.4 (0.8-1.8); Alk Phos 113 U/L (50-136); Anion Gap 5 mmol/L (6-16); Aspartate Aminotrans (AST/SGOT 35 U/L (12-37); Bilirubin, Total 1.5 mg/dL (0.1-1.0); Blood Urea Nitrogen 15 mg/dL (8-24); Bun/Creatinine Ratio 11.9 (12.0-20.0); CO2, Blood 26 mmol/L (21-32); Calcium, Blood 8.2 mg/dL (8.5-10.1); Chloride, Blood 109 mmol/L (98-108); Creatinine, Blood 1.26 mg/dL (0.60-1.20); Globulin, Blood 2.5 g/dL (2.2-4.0); Glomerular Filtration Rate 59 (60-); Glucose, Blood 94 mg/dL (70-99); Lactate Dehydrogenase (Ld),Bld 260 U/L (100-240); Potassium, Blood 3.4 mmol/L (3.5-5.5); Sodium, Blood 140 mmol/L (136-145); Total Protein, Blood 5.9 g/dL (6.4-8.2); Triglycerides 110 mg/dL (30-160); Uric Acid, Blood 7.8 mg/dL (3.5-7.2)
[2020-12-16 11:52] LABS: Mean Platelet Volume 13.1 fL (9.1-12.4)
[2020-12-16 12:01] LABS: White Blood Cell Count 0.94 K/mm3 (4.00-11.30)
[2020-12-16 12:02] LABS: Platelet Count 12 K/mm3 (150-400)
[2020-12-16 12:11] LABS: BASOPHILS PERCENT MAN 0 % (0-2); EOSINOPHILS ABSOLUTE MAN 0.01 K/mm3 (0.00-0.68); EOSINOPHILS PERCENT MAN 2 % (0-6); LYMPHOCYTES PERCENT MAN 64 % (21-46); MONOCYTES ABSOLUTE MAN 0.07 K/mm3 (0.16-1.47); MONOCYTES PERCENT MAN 8 % (4-13); NEUTROPHILS ABSOLUTE MAN 0.24 K/mm3 (1.96-9.15); SEG NEUTROPHILS PERCENT MAN 26 % (41-73); TOTAL CELLS COUNTED 50
== END 2020-12-17 10:38 | disposition home or self-care (01) ==
LOC: ATC 00:40
PROVIDERS: Internal Medicine Hematology & Oncology
DX: D61.818 Other pancytopenia (principal); C82.18 Follicular lymphoma grade II, lymph nodes of multiple sites; D70.1 Agranulocytosis secondary to cancer chemotherapy; T45.1X5A Adverse effect of antineoplastic and immunosuppressive drugs, initial encounter; E44.0 Moderate protein-calorie malnutrition
CPT/HCPCS: 36415; 80053; 83615; 84478; 84550; 85025; 86850; 86900; 86901; 86923; J7050; P9040; Q5110

== ENCOUNTER 2020-12-19 15:00 | Day surgery (SDC) | payer MEDICARE | END 2020-12-19 16:00 | disposition home or self-care (01) | LOC: ATC 15:00 | DX: D61.818 Other pancytopenia (principal); C82.18 Follicular lymphoma grade II, lymph nodes of multiple sites; Z88.8 Allergy status to other drugs, medicaments and biological substances | CPT/HCPCS: 96372; Q5110 ==

== ENCOUNTER 2020-12-25 02:26 | Day surgery (SDC) | payer MEDICARE ==
[2020-12-23 09:36] LABS: Hematocrit 20.2 % (37.0-53.0); Hemoglobin 6.7 g/dL (13.5-17.5); Mean Corpuscular HGB 33.2 pg (26.0-34.0); Mean Corpuscular HGB Conc 33.2 g/dL (31.5-36.5); Mean Corpuscular Volume 100 fL (80-100); Mean Platelet Volume 12.4 fL (9.1-12.4); RDW Coefficient Variation 21.7 % (11.7-14.2); RDW Standard Deviation 75.3 fL (35.1-46.3); Red Blood Cell Count 2.02 M/mm3 (4.30-5.90)
[2020-12-23 09:39] LABS: Platelet Count 14 K/mm3 (150-400)
[2020-12-23 10:01] LABS: Alanine Aminotransfer (ALT/SGP 36 U/L (12-78); Albumin, Blood 3.5 g/dL (3.4-5.0); Albumin/Globulin Ratio 1.3 (0.8-1.8); Alk Phos 108 U/L (50-136); Anion Gap 5 mmol/L (6-16); Aspartate Aminotrans (AST/SGOT 24 U/L (12-37); Bilirubin, Total 1.9 mg/dL (0.1-1.0); Blood Urea Nitrogen 15 mg/dL (8-24); Bun/Creatinine Ratio 12.9 (12.0-20.0); CO2, Blood 26 mmol/L (21-32); Calcium, Blood 8.3 mg/dL (8.5-10.1); Chloride, Blood 108 mmol/L (98-108); Creatinine, Blood 1.16 mg/dL (0.60-1.20); Globulin, Blood 2.6 g/dL (2.2-4.0); Glomerular Filtration Rate >60 (60-); Glucose, Blood 89 mg/dL (70-99); Lactate Dehydrogenase (Ld),Bld 269 U/L (100-240); Potassium, Blood 3.2 mmol/L (3.5-5.5); Sodium, Blood 139 mmol/L (136-145); Total Protein, Blood 6.1 g/dL (6.4-8.2); Triglycerides 102 mg/dL (30-160); Uric Acid, Blood 9.2 mg/dL (3.5-7.2)
[2020-12-23 10:06] LABS: BAND PERCENT MAN 8 % (0-8); BASOPHILS PERCENT MAN 0 % (0-2); EOSINOPHILS ABSOLUTE MAN 0.02 K/mm3 (0.00-0.68); EOSINOPHILS PERCENT MAN 4 % (0-6); LYMPHOCYTES ABSOLUTE MAN 0.46 K/mm3 (0.84-5.20); LYMPHOCYTES PERCENT MAN 64 % (21-46); MONOCYTES PERCENT MAN 0 % (4-13); NEUTROPHILS ABSOLUTE MAN 0.23 K/mm3 (1.96-9.15); SEG NEUTROPHILS PERCENT MAN 24 % (41-73); TOTAL CELLS COUNTED 25
[2020-12-23 10:09] LABS: White Blood Cell Count 0.73 K/mm3 (4.00-11.30)
== END 2020-12-25 12:15 | disposition home or self-care (01) ==
LOC: ATC 02:26
PROVIDERS: Internal Medicine Hematology & Oncology
DX: D61.818 Other pancytopenia (principal); C82.18 Follicular lymphoma grade II, lymph nodes of multiple sites; E44.0 Moderate protein-calorie malnutrition; Z88.8 Allergy status to other drugs, medicaments and biological substances; Z79.899 Other long term (current) drug therapy
CPT/HCPCS: 36415; 36430; 80053; 83615; 84478; 84550; 85025; 86850; 86900; 86901; 86923; 96372; J7050; P9040; Q5110

== ENCOUNTER 2020-12-26 14:23 | Day surgery (SDC) | payer MEDICARE | END 2020-12-26 14:41 | disposition home or self-care (01) | LOC: ATC 14:23 | DX: D61.818 Other pancytopenia (principal); D70.9 Neutropenia, unspecified; Z88.8 Allergy status to other drugs, medicaments and biological substances | CPT/HCPCS: 96372; Q5110 ==

== ENCOUNTER 2020-12-30 11:55 | Day surgery (SDC) | payer MEDICARE | END 2020-12-30 14:00 | disposition home or self-care (01) | LOC: ATC 11:55 | DX: D61.818 Other pancytopenia (principal); D70.9 Neutropenia, unspecified; C82.18 Follicular lymphoma grade II, lymph nodes of multiple sites | CPT/HCPCS: 96372; Q5110 ==

== ENCOUNTER 2021-01-03 01:33 | Day surgery (SDC) | payer MEDICARE ==
[2021-01-02 11:22] LABS: BASOPHILS ABSOLUTE AUTO 0.01 K/mm3 (0.00-0.23); BASOPHILS PERCENT AUTO 1 % (0-2); Hematocrit 18.6 % (37.0-53.0); Hemoglobin 6.2 g/dL (13.5-17.5); LYMPHOCYTES ABSOLUTE AUTO 0.52 K/mm3 (0.84-5.20); LYMPHOCYTES PERCENT AUTO 29 % (21-46); MONOCYTES PERCENT AUTO 11 % (4-13); Mean Corpuscular HGB 33.5 pg (26.0-34.0); Mean Corpuscular HGB Conc 33.3 g/dL (31.5-36.5); Mean Corpuscular Volume 101 fL (80-100); Mean Platelet Volume 10.4 fL (9.1-12.4); RDW Coefficient Variation 22.8 % (11.7-14.2); RDW Standard Deviation 79.8 fL (35.1-46.3); Red Blood Cell Count 1.85 M/mm3 (4.30-5.90)
[2021-01-02 11:34] LABS: EOSINOPHILS ABSOLUTE AUTO 0.03 K/mm3 (0.00-0.68); EOSINOPHILS PERCENT AUTO 2 % (0-6); IMMATURE GRAN ABSOLUTE AUTO 0.11 K/mm3 (0.00-0.10); IMMATURE GRAN PERCENT AUTO 6 % (0-1); NEUTROPHILS ABSOLUTE AUTO 0.93 K/mm3 (1.96-9.15); NEUTROPHILS PERCENT AUTO 52 % (41-73)
[2021-01-02 11:42] LABS: Platelet Count 15 K/mm3 (150-400)
[2021-01-02 11:53] LABS: Albumin, Blood 3.5 g/dL (3.4-5.0); Albumin/Globulin Ratio 1.5 (0.8-1.8); Bilirubin, Total 1.8 mg/dL (0.1-1.0); Bun/Creatinine Ratio 8.8 (12.0-20.0); Calcium, Blood 8.5 mg/dL (8.5-10.1); Creatinine, Blood 1.47 mg/dL (0.60-1.20); Globulin, Blood 2.4 g/dL (2.2-4.0); Potassium, Blood 3.1 mmol/L (3.5-5.5); Total Protein, Blood 5.9 g/dL (6.4-8.2)
[2021-01-02 12:48] LABS: BAND PERCENT MAN 2 % (0-8); BASOPHILS PERCENT MAN 0 % (0-2); EOSINOPHILS PERCENT MAN 0 % (0-6); LYMPHOCYTES ABSOLUTE MAN 0.57 K/mm3 (0.84-5.20); LYMPHOCYTES PERCENT MAN 32 % (21-46); MONOCYTES ABSOLUTE MAN 0.18 K/mm3 (0.16-1.47); MONOCYTES PERCENT MAN 10 % (4-13); MYELOCYTE ABSOLUTE MAN 0.03 K/mm3 (0.00-0.00); MYELOCYTE PERCENT MAN 2 % (0-0); SEG NEUTROPHILS PERCENT MAN 54 % (41-73); TOTAL CELLS COUNTED 50
== END 2021-01-03 10:15 | disposition home or self-care (01) ==
LOC: ATC 01:33
PROVIDERS: Internal Medicine Hematology & Oncology
DX: C82.18 Follicular lymphoma grade II, lymph nodes of multiple sites (principal); D61.818 Other pancytopenia; D70.1 Agranulocytosis secondary to cancer chemotherapy; T45.1X5A Adverse effect of antineoplastic and immunosuppressive drugs, initial encounter; E44.0 Moderate protein-calorie malnutrition; Z88.8 Allergy status to other drugs, medicaments and biological substances
CPT/HCPCS: 36415; 36430; 80053; 83615; 84550; 85025; 86850; 86900; 86901; 86923; 96372; J7050; P9040; Q5110

== ENCOUNTER 2021-01-07 04:11 | Day surgery (SDC) | payer MEDICARE ==
[2021-01-06 09:44] LABS: Hematocrit 20.1 % (37.0-53.0); Hemoglobin 6.6 g/dL (13.5-17.5); Mean Corpuscular HGB 32.4 pg (26.0-34.0); Mean Corpuscular HGB Conc 32.8 g/dL (31.5-36.5); Mean Corpuscular Volume 99 fL (80-100); Mean Platelet Volume 10.7 fL (9.1-12.4); RDW Coefficient Variation 22.6 % (11.7-14.2); Red Blood Cell Count 2.04 M/mm3 (4.30-5.90); White Blood Cell Count 1.23 K/mm3 (4.00-11.30)
[2021-01-06 09:56] LABS: Alanine Aminotransfer (ALT/SGP 63 U/L (12-78); Albumin, Blood 3.4 g/dL (3.4-5.0); Albumin/Globulin Ratio 1.4 (0.8-1.8); Alk Phos 124 U/L (50-136); Anion Gap 8 mmol/L (6-16); Aspartate Aminotrans (AST/SGOT 63 U/L (12-37); Bilirubin, Total 2.9 mg/dL (0.1-1.0); Blood Urea Nitrogen 13 mg/dL (8-24); CO2, Blood 27 mmol/L (21-32); Calcium, Blood 8.5 mg/dL (8.5-10.1); Chloride, Blood 104 mmol/L (98-108); Creatinine, Blood 1.18 mg/dL (0.60-1.20); Globulin, Blood 2.4 g/dL (2.2-4.0); Glomerular Filtration Rate >60 (60-); Glucose, Blood 109 mg/dL (70-99); Lactate Dehydrogenase (Ld),Bld 369 U/L (100-240); Potassium, Blood 2.8 mmol/L (3.5-5.5); Sodium, Blood 139 mmol/L (136-145); Total Protein, Blood 5.8 g/dL (6.4-8.2); Uric Acid, Blood 4.7 mg/dL (3.5-7.2)
[2021-01-06 10:02] LABS: Platelet Count 18 K/mm3 (150-400)
[2021-01-06 10:22] LABS: BASOPHILS ABSOLUTE MAN 0.02 K/mm3 (0.00-0.23); BASOPHILS PERCENT MAN 2 % (0-2); EOSINOPHILS PERCENT MAN 0 % (0-6); LYMPHOCYTES ABSOLUTE MAN 0.61 K/mm3 (0.84-5.20); LYMPHOCYTES PERCENT MAN 50 % (21-46); MONOCYTES ABSOLUTE MAN 0.14 K/mm3 (0.16-1.47); MONOCYTES PERCENT MAN 12 % (4-13); NEUTROPHILS ABSOLUTE MAN 0.44 K/mm3 (1.96-9.15); SEG NEUTROPHILS PERCENT MAN 36 % (41-73); TOTAL CELLS COUNTED 50
== END 2021-01-07 16:10 | disposition home or self-care (01) ==
LOC: ATC 04:11
PROVIDERS: Internal Medicine Hematology & Oncology
DX: C82.18 Follicular lymphoma grade II, lymph nodes of multiple sites (principal); D70.1 Agranulocytosis secondary to cancer chemotherapy; T45.1X5A Adverse effect of antineoplastic and immunosuppressive drugs, initial encounter; D61.818 Other pancytopenia; E44.0 Moderate protein-calorie malnutrition; Z88.8 Allergy status to other drugs, medicaments and biological substances
CPT/HCPCS: 36415; 36430; 80053; 83615; 84550; 85025; 86850; 86900; 86901; 86923; 96372; J7050; P9040; Q5110

== ENCOUNTER 2021-01-13 00:22 | Day surgery (SDC) | payer MEDICARE ==
[2021-01-13 09:00] LABS: Mean Corpuscular HGB 31.8 pg (26.0-34.0); Mean Corpuscular HGB Conc 32.8 g/dL (31.5-36.5); Mean Corpuscular Volume 97 fL (80-100); Mean Platelet Volume 13.1 fL (9.1-12.4); RDW Coefficient Variation 19.9 % (11.7-14.2); Red Blood Cell Count 1.79 M/mm3 (4.30-5.90)
[2021-01-13 09:13] LABS: BASOPHILS PERCENT AUTO 0 % (0-2); EOSINOPHILS PERCENT AUTO 0 % (0-6); Hematocrit 17.4 % (37.0-53.0); Hemoglobin 5.7 g/dL (13.5-17.5); IMMATURE GRAN ABSOLUTE AUTO 0.07 K/mm3 (0.00-0.10); IMMATURE GRAN PERCENT AUTO 7 % (0-1); LYMPHOCYTES ABSOLUTE AUTO 0.46 K/mm3 (0.84-5.20); LYMPHOCYTES PERCENT AUTO 48 % (21-46); MONOCYTES ABSOLUTE AUTO 0.16 K/mm3 (0.16-1.47); MONOCYTES PERCENT AUTO 17 % (4-13); NEUTROPHILS ABSOLUTE AUTO 0.27 K/mm3 (1.96-9.15); NEUTROPHILS PERCENT AUTO 28 % (41-73); Platelet Count 18 K/mm3 (150-400)
[2021-01-13 09:14] LABS: White Blood Cell Count 0.96 K/mm3 (4.00-11.30)
[2021-01-13 09:23] LABS: Alanine Aminotransfer (ALT/SGP 61 U/L (12-78); Albumin, Blood 3.3 g/dL (3.4-5.0); Albumin/Globulin Ratio 1.3 (0.8-1.8); Alk Phos 126 U/L (50-136); Anion Gap 8 mmol/L (6-16); Aspartate Aminotrans (AST/SGOT 53 U/L (12-37); Bilirubin, Total 2.5 mg/dL (0.1-1.0); Blood Urea Nitrogen 11 mg/dL (8-24); Bun/Creatinine Ratio 9.2 (12.0-20.0); CO2, Blood 27 mmol/L (21-32); Calcium, Blood 7.9 mg/dL (8.5-10.1); Chloride, Blood 102 mmol/L (98-108); Globulin, Blood 2.6 g/dL (2.2-4.0); Glomerular Filtration Rate >60 (60-); Glucose, Blood 108 mg/dL (70-99); Lactate Dehydrogenase (Ld),Bld 322 U/L (100-240); Potassium, Blood 2.5 mmol/L (3.5-5.5); Sodium, Blood 137 mmol/L (136-145); Total Protein, Blood 5.9 g/dL (6.4-8.2); Triglycerides 189 mg/dL (30-160); Uric Acid, Blood 5.5 mg/dL (3.5-7.2)
[2021-01-13] MEDS ORDERED: DAPS100 PO (10:43)
[2021-01-13] MEDS ORDERED: LEVFLO500 PO (10:43)
[2021-01-13] MEDS ORDERED: NOXAFIL100 MG PO (10:44)
== END 2021-01-13 12:23 | disposition home or self-care (01) ==
LOC: ATC 00:22
PROVIDERS: Internal Medicine Hematology & Oncology
DX: D61.818 Other pancytopenia (principal); C82.18 Follicular lymphoma grade II, lymph nodes of multiple sites; E44.0 Moderate protein-calorie malnutrition; D70.1 Agranulocytosis secondary to cancer chemotherapy; T45.1X5A Adverse effect of antineoplastic and immunosuppressive drugs, initial encounter
CPT/HCPCS: 36415; 36430; 80053; 83615; 84478; 84550; 85025; 86850; 86900; 86901; 86923; 96372; J7050; P9016; Q5110

== ENCOUNTER 2021-01-17 01:08 | Day surgery (SDC) | payer MEDICARE ==
[2021-01-16 12:34] LABS: BASOPHILS PERCENT AUTO 0 % (0-2); Hematocrit 18.1 % (37.0-53.0); LYMPHOCYTES ABSOLUTE AUTO 0.37 K/mm3 (0.84-5.20); LYMPHOCYTES PERCENT AUTO 37 % (21-46); MONOCYTES ABSOLUTE AUTO 0.12 K/mm3 (0.16-1.47); MONOCYTES PERCENT AUTO 12 % (4-13); Mean Corpuscular HGB 31.1 pg (26.0-34.0); Mean Corpuscular HGB Conc 33.1 g/dL (31.5-36.5); Mean Corpuscular Volume 94 fL (80-100); Mean Platelet Volume 12.4 fL (9.1-12.4); RDW Coefficient Variation 20.2 % (11.7-14.2); RDW Standard Deviation 67.6 fL (35.1-46.3); Red Blood Cell Count 1.93 M/mm3 (4.30-5.90); White Blood Cell Count 1.01 K/mm3 (4.00-11.30)
[2021-01-16 12:42] LABS: Albumin, Blood 3.2 g/dL (3.4-5.0); Albumin/Globulin Ratio 1.1 (0.8-1.8); Bilirubin, Total 2.5 mg/dL (0.1-1.0); Bun/Creatinine Ratio 11.6 (12.0-20.0); Creatinine, Blood 1.29 mg/dL (0.60-1.20); Potassium, Blood 2.7 mmol/L (3.5-5.5); Total Protein, Blood 6.2 g/dL (6.4-8.2)
[2021-01-16 12:48] LABS: EOSINOPHILS ABSOLUTE AUTO 0.01 K/mm3 (0.00-0.68); EOSINOPHILS PERCENT AUTO 1 % (0-6); IMMATURE GRAN ABSOLUTE AUTO 0.07 K/mm3 (0.00-0.10); IMMATURE GRAN PERCENT AUTO 7 % (0-1); NEUTROPHILS ABSOLUTE AUTO 0.44 K/mm3 (1.96-9.15); NEUTROPHILS PERCENT AUTO 44 % (41-73)
[2021-01-16 12:49] LABS: Platelet Count 19 K/mm3 (150-400)
[~2021-01-17 01:08] MED LIST changes: +DAPS100 PO; +NOXAFIL100 MG PO
== END 2021-01-17 17:13 | disposition home or self-care (01) ==
LOC: ATC 01:08
PROVIDERS: Internal Medicine Hematology & Oncology
DX: C82.18 Follicular lymphoma grade II, lymph nodes of multiple sites (principal); D70.1 Agranulocytosis secondary to cancer chemotherapy; T45.1X5A Adverse effect of antineoplastic and immunosuppressive drugs, initial encounter; D61.818 Other pancytopenia; E44.0 Moderate protein-calorie malnutrition; Z88.8 Allergy status to other drugs, medicaments and biological substances
CPT/HCPCS: 36415; 36430; 80053; 83615; 85025; 86850; 86900; 86901; 86923; 96372; J7050; P9016; Q5110

== ENCOUNTER 2021-01-22 01:56 | Day surgery (SDC) | payer MEDICARE ==
[2021-01-20 15:19] LABS: Hematocrit 18.6 % (37.0-53.0); Hemoglobin 6.2 g/dL (13.5-17.5); Mean Corpuscular HGB Conc 33.3 g/dL (31.5-36.5); Mean Corpuscular Volume 93 fL (80-100); RDW Coefficient Variation 18.2 % (11.7-14.2); RDW Standard Deviation 61.1 fL (35.1-46.3)
[2021-01-20 15:42] LABS: White Blood Cell Count 0.81 K/mm3 (4.00-11.30)
[2021-01-20 15:43] LABS: Platelet Count 20 K/mm3 (150-400)
[2021-01-20 16:00] LABS: Albumin, Blood 3.2 g/dL (3.4-5.0); Bilirubin, Total 1.9 mg/dL (0.1-1.0); Bun/Creatinine Ratio 13.2 (12.0-20.0); Calcium, Blood 8.4 mg/dL (8.5-10.1); Creatinine, Blood 1.36 mg/dL (0.60-1.20); Globulin, Blood 3.2 g/dL (2.2-4.0); Potassium, Blood 2.8 mmol/L (3.5-5.5); Total Protein, Blood 6.4 g/dL (6.4-8.2)
[2021-01-20 16:13] LABS: BASOPHILS PERCENT MAN 0 % (0-2); EOSINOPHILS PERCENT MAN 0 % (0-6); LYMPHOCYTES ABSOLUTE MAN 0.56 K/mm3 (0.84-5.20); LYMPHOCYTES PERCENT MAN 70 % (21-46); MONOCYTES ABSOLUTE MAN 0.04 K/mm3 (0.16-1.47); MONOCYTES PERCENT MAN 6 % (4-13); NEUTROPHILS ABSOLUTE MAN 0.19 K/mm3 (1.96-9.15); SEG NEUTROPHILS PERCENT MAN 24 % (41-73); TOTAL CELLS COUNTED 50
== END 2021-01-22 15:48 | disposition home or self-care (01) ==
LOC: ATC 01:56 → EDSTATUS 13:30 → ATC 15:48
PROVIDERS: Internal Medicine Hematology & Oncology
DX: C82.18 Follicular lymphoma grade II, lymph nodes of multiple sites (principal); Z88.8 Allergy status to other drugs, medicaments and biological substances
CPT/HCPCS: 36415; 36430; 80053; 83615; 84550; 85025; 86850; 86900; 86901; 86923; 96372; J7050; P9040; Q5110

== ENCOUNTER 2021-01-24 00:30 | Day surgery (SDC) | payer MEDICARE ==
[2021-01-23 12:56] LABS: Hemoglobin 6.4 g/dL (13.5-17.5); Mean Corpuscular HGB 30.2 pg (26.0-34.0); Mean Corpuscular HGB Conc 33.7 g/dL (31.5-36.5); Mean Corpuscular Volume 90 fL (80-100); RDW Coefficient Variation 18.8 % (11.7-14.2); RDW Standard Deviation 60.9 fL (35.1-46.3); Red Blood Cell Count 2.12 M/mm3 (4.30-5.90); White Blood Cell Count 1.56 K/mm3 (4.00-11.30)
[2021-01-23 13:34] LABS: Platelet Count 17 K/mm3 (150-400)
[2021-01-23 14:09] LABS: Alanine Aminotransfer (ALT/SGP 19 U/L (12-78); Albumin, Blood 2.8 g/dL (3.4-5.0); Albumin/Globulin Ratio 0.9 (0.8-1.8); Alk Phos 87 U/L (50-136); Anion Gap 8 mmol/L (6-16); Aspartate Aminotrans (AST/SGOT 24 U/L (12-37); Bilirubin, Total 2.6 mg/dL (0.1-1.0); Blood Urea Nitrogen 16 mg/dL (8-24); Bun/Creatinine Ratio 13.7 (12.0-20.0); CO2, Blood 25 mmol/L (21-32); Calcium, Blood 8.2 mg/dL (8.5-10.1); Chloride, Blood 100 mmol/L (98-108); Creatinine, Blood 1.17 mg/dL (0.60-1.20); Globulin, Blood 3.1 g/dL (2.2-4.0); Glomerular Filtration Rate >60 (60-); Glucose, Blood 99 mg/dL (70-99); Lactate Dehydrogenase (Ld),Bld 334 U/L (100-240); Sodium, Blood 133 mmol/L (136-145); Total Protein, Blood 5.9 g/dL (6.4-8.2); Uric Acid, Blood 3.7 mg/dL (3.5-7.2)
[2021-01-23 14:24] LABS: BAND PERCENT MAN 10 % (0-8); BASOPHILS PERCENT MAN 0 % (0-2); EOSINOPHILS PERCENT MAN 0 % (0-6); LYMPHOCYTES % ATYPICAL MANUAL 6 % (0-0); LYMPHOCYTES ABSOLUTE MAN 0.59 K/mm3 (0.84-5.20); LYMPHOCYTES PERCENT MAN 32 % (21-46); METAMYELOCYTE ABSOLUTE MAN 0.06 K/mm3 (0.00-0.00); METAMYELOCYTE PERCENT MAN 4 % (0-0); MONOCYTES ABSOLUTE MAN 0.03 K/mm3 (0.16-1.47); MONOCYTES PERCENT MAN 2 % (4-13); NEUTROPHILS ABSOLUTE MAN 0.87 K/mm3 (1.96-9.15); SEG NEUTROPHILS PERCENT MAN 46 % (41-73); TOTAL CELLS COUNTED 50
== END 2021-01-24 15:40 | disposition home or self-care (01) ==
LOC: ATC 00:30
PROVIDERS: Internal Medicine Hematology & Oncology
DX: C82.18 Follicular lymphoma grade II, lymph nodes of multiple sites (principal); D70.1 Agranulocytosis secondary to cancer chemotherapy; T45.1X5A Adverse effect of antineoplastic and immunosuppressive drugs, initial encounter; D61.818 Other pancytopenia; E44.0 Moderate protein-calorie malnutrition; Z88.8 Allergy status to other drugs, medicaments and biological substances
CPT/HCPCS: 36415; 36430; 80053; 83615; 84550; 85025; 86850; 86900; 86901; 86923; 96372; J7050; P9040; Q5110

== ENCOUNTER 2021-01-28 00:59 | Day surgery (SDC) | payer MEDICARE ==
[2021-01-27 12:35] LABS: Hematocrit 20.9 % (37.0-53.0); Mean Corpuscular HGB Conc 33.5 g/dL (31.5-36.5); Mean Corpuscular Volume 90 fL (80-100); RDW Coefficient Variation 17.2 % (11.7-14.2); RDW Standard Deviation 55.4 fL (35.1-46.3); Red Blood Cell Count 2.33 M/mm3 (4.30-5.90); White Blood Cell Count 1.72 K/mm3 (4.00-11.30)
[2021-01-27 12:50] LABS: Alanine Aminotransfer (ALT/SGP 21 U/L (12-78); Albumin, Blood 2.5 g/dL (3.4-5.0); Albumin/Globulin Ratio 0.8 (0.8-1.8); Alk Phos 94 U/L (50-136); Anion Gap 7 mmol/L (6-16); Aspartate Aminotrans (AST/SGOT 30 U/L (12-37); Bilirubin, Total 1.5 mg/dL (0.1-1.0); Blood Urea Nitrogen 15 mg/dL (8-24); Bun/Creatinine Ratio 13.3 (12.0-20.0); CO2, Blood 26 mmol/L (21-32); Calcium, Blood 8.3 mg/dL (8.5-10.1); Chloride, Blood 101 mmol/L (98-108); Creatinine, Blood 1.13 mg/dL (0.60-1.20); Globulin, Blood 3.3 g/dL (2.2-4.0); Glomerular Filtration Rate >60 (60-); Glucose, Blood 95 mg/dL (70-99); Lactate Dehydrogenase (Ld),Bld 332 U/L (100-240); Potassium, Blood 3.2 mmol/L (3.5-5.5); Sodium, Blood 134 mmol/L (136-145); Total Protein, Blood 5.8 g/dL (6.4-8.2); Uric Acid, Blood 3.4 mg/dL (3.5-7.2)
[2021-01-27 13:27] LABS: Platelet Count 16 K/mm3 (150-400)
[2021-01-27 13:53] LABS: BAND PERCENT MAN 6 % (0-8); BASOPHILS PERCENT MAN 0 % (0-2); EOSINOPHILS PERCENT MAN 0 % (0-6); LYMPHOCYTES % ATYPICAL MANUAL 2 % (0-0); LYMPHOCYTES ABSOLUTE MAN 0.58 K/mm3 (0.84-5.20); LYMPHOCYTES PERCENT MAN 32 % (21-46); MONOCYTES ABSOLUTE MAN 0.03 K/mm3 (0.16-1.47); MONOCYTES PERCENT MAN 2 % (4-13); NEUTROPHILS ABSOLUTE MAN 1.06 K/mm3 (1.96-9.15); OTHER CELL PERCENT MAN 2 % (0-0); SEG NEUTROPHILS PERCENT MAN 56 % (41-73); TOTAL CELLS COUNTED 50
--- NOTE | 2021-01-28 10:07 | NUR ---
CALLED UP TO TO [facility] AND SABI ROSE STATED SHE HAD NO BLOOD FOR HIM. MILTON FROM [facility] STATED SHE WOULD NOT GET HIS BLOOD IN UNTIL 1300. PT DICHARGED TO HOME AND WILL GET INFUSION AT 1430. CALLED UP TO [facility] TO INFORM MILTON. PT DISCHARGED VIA W/C TO CARE OF GIRLFRIEND. PT TO RETURN AT 1430 FOR HIS TRANSFUSION. OT ALSO NEEDED O2-FIRST BIOX PT WAS 84% ON RA. PUT PT ON 2 LITER OF O2 AND BIOX WAS 94%. TOOK BIOX OFF PT AND IT WAS 95% ON RA. PT STATES THIS MADE HIM FEEL ALOT BETTER.
--- NOTE | 2021-01-28 14:12 | NUR ---
PT ARRIVED COUGHING UPON INFUSION, O2 SATS AT 82% 2 LITERS OF OXYGEN PUT ON BIOX UP TO 87% THEN INCREASED PT TO 4 LITERS AND BIOXING AT 91% BLOOD INFUSING BLOOD AT THIS TIME, PT STATES, "I AM DYING" PT IS TERMINAL AND IN A VERY DEPRESSED STATE, ENCOURAGED PT TO LET US CALL [facility]/HOSPICE PT STATES HE "WILL DO THAT WHEN HIS DR TELLS HIM TO"
--- NOTE | 2021-01-28 14:30 | NUR ---
OXYGEN KICKED DOWN TO 2 LITERS NS BIOX AT 94% AND MAINTAINING
--- NOTE | 2021-01-28 18:02 | NUR ---
CALLED DR SULLIVAN AND DR [place], DR NY WAS INFORMED THAT PT IS REALLY CONSIDERING HOSPICE, HE STATES THAT HE "CAN'T DO THIS ANYMORE" AND WITH PTS BIOX GOING DOWN AND NEEDING OXYGEN HE FEELS THAT IT IS NEAR THE END OF HIS LIFE. LEE AND DR SULLIVAN WILL HAVE A PHONE CONFERENCE TOMORROW. DR SULLIVAN IS ALSO AWARE THAT LEE IS CONSIDERING HOSPICE
== END 2021-01-28 16:05 | disposition home or self-care (01) ==
LOC: ATC 00:59
PROVIDERS: Internal Medicine Hematology & Oncology
DX: C82.18 Follicular lymphoma grade II, lymph nodes of multiple sites (principal); D70.1 Agranulocytosis secondary to cancer chemotherapy; T45.1X5A Adverse effect of antineoplastic and immunosuppressive drugs, initial encounter; D61.818 Other pancytopenia; E44.0 Moderate protein-calorie malnutrition; Z88.8 Allergy status to other drugs, medicaments and biological substances
CPT/HCPCS: 36415; 36430; 80053; 83615; 84550; 85025; 86850; 86900; 86901; 86923; 96372; J7050; P9040; Q5110